=== PATIENT | female | born 1985 | race American Indian/Alaskan Native ===

== ENCOUNTER 2019-08-01 01:53 | Emergency (ER) | payer SELFPAY ==
[2019-08-01] MEDS ORDERED: predniSONE 20 MG TAB PO ONE (05:17)
[2019-08-01] MEDS ORDERED: IBUPROFEN 600 MG TAB PO ONE (05:17)
--- NOTE | 2019-08-01 06:02 | Emergency Department Report ---
Upper Extremity - HPI Chief Complaint: Extremity Injury, Upper Stated Complaint: RIGHT ARM PAIN Upper Extremity: Right Elbow (pain), Right Forearm (pain), Right Wrist (pain), Right Hand (pain), Right Index Finger, Right Middle Finger, Right Ring Finger, Right Little Finger Occurred When: Today Mechanism: Unsure (may have slept on the right forearm) Severity: moderate Symptoms: Yes Numbness (with tingling), No Pain with Movement, No Limited Range of Movement, No Weakness, No Swelling, No Bruising/Ecchymosis, No Laceration or Abrasion Other History: Patient is a 33-year-old -Welsh female with no past medical history presents to the ED with continued of acute onset persistent diffuse right elbow and forearm pain with tingling and numbness sensation distally in the right hand and fingers intermittently for the last 6 hours. Patient states that she was asleep when she woke up with a sensation that for right hand and decided come to the ED for evaluation. Patient denies dizziness, chest pain, shortness of breath, neck pain, headache, heavy lifting, traumatic injury, nausea and vomiting, diaphoresis or fall. ED Review of Systems ROS: Stated complaint: RIGHT ARM PAIN Other details as noted in HPI Constitutional: denies: chills, fever Eyes: denies: eye pain, eye discharge, vision change ENT: denies: ear pain, throat pain Respiratory: denies: cough, shortness of breath, wheezing Cardiovascular: denies: chest pain, palpitations Endocrine: no symptoms reported Gastrointestinal: denies: abdominal pain, nausea, diarrhea Genitourinary: denies: urgency, dysuria, discharge Musculoskeletal: arthralgia (right forearm and elbow; right wrist and hand with tingling sensations). denies: back pain, joint swelling Skin: denies: rash, lesions Neurological: denies: headache, weakness, paresthesias Psychiatric: denies: anxiety, depression Hematological/Lymphatic: denies: easy bleeding, easy bruising ED Past Medical Hx - Past Medical History Previous Medical History?: No Hx Hypertension: No Hx Congestive Heart Failure: No Hx Diabetes: No Hx Deep Vein Thrombosis: No Hx Renal Disease: No Hx Sickle Cell Disease: No Hx Seizures: No Hx Asthma: No Hx COPD: No Hx HIV: No Additional medical history: MORBID OBESITY - Surgical History Past Surgical History?: No - Social History Smoking Status: Current Some Day Smoker Substance Use Type: None - Medications Home Medications: Home Medications Medication Instructions Recorded Confirmed Last Taken Type Hyoscyamine Subl [Levsin Sl] 0.125 mg SL Q4HR PRN #7 tablet 06/20/14 05/05/15 Unknown Rx Promethazine [Phenergan] 25 mg PO Q6H PRN #10 tablet 06/20/14 05/05/15 Unknown Rx Ibuprofen [Motrin 800 MG tab] 800 mg PO Q8HR PRN #90 tablet 05/02/15 Unknown Rx oxyCODONE /ACETAMINOPHEN [Percocet 1 tab PO Q6HR PRN #30 tablet 05/02/15 Unknown Rx 5/325 mg] Naproxen 500 mg PO Q12H PRN #30 tablet 08/01/19 Unknown Rx predniSONE [Deltasone] 40 mg PO QDAY #12 tab 08/01/19 Unknown Rx tiZANidine [Zanaflex 4mg TAB] 4 mg PO Q8H PRN #21 tablet 08/01/19 Unknown Rx traMADoL [Ultram] 50 mg PO Q6HR PRN #10 tablet 08/01/19 Unknown Rx Upper Extremity Exam - Exam General: Vital signs noted. No distress. Alert and acting appropriately. Head and Torso: No HEENT Abnormality, No Neck Tenderness, No Chest/Lungs Abnormality, No Abdominal Tenderness, No Back Tenderness Shoulder Exam: Yes Normal Range of Motion in Shoulder, No Shoulder Tenderness, No Clavicle Tenderness, No Shoulder Deformity, No AC Joint Tenderness Arm Exam: No Arm/Humerus Tenderness, No Arm Deformity Elbow: Yes Elbow Tenderness, Yes Normal Range of Motion in Elbow, No Elbow Deformity Forearm: Yes Forearm Tenderness, No Forearm Deformity, No Pain with Pronation, No Pain with Supination Wrist: Yes Wrist Tenderness, Yes Normal ROM in Wrist, No Wrist Deformity, No Snuffbox Tenderness, No Pain with Axial Thumb Compression Hand: Yes Hand Tenderness, Yes Digit Tenderness, Yes Normal ROM in Digit(s), No Hand Deformity, No Digit(s) Deformity, No Tendon Dysfunction CMS Exam: Yes Normal Distal Pulses, Yes Normal Capillary Refill, Yes Normal Distal Sensation, No Broken Skin ED Course Vital Signs 08/01/19 01:59 Temperature 98.6 F Pulse Rate 74 Respiratory 18 Rate Blood Pressure 152/69 O2 Sat by Pulse 100 Oximetry ED Medical Decision Making - Medical Decision Making This is a 33-year-old female who presented to the ED with complaint of acute onset of nontraumatic right elbow and right forearm, right hand and wrist pain with tingling and numbness sensation for 6 hours. In the ED, patient is alert and oriented 3 and is not in distress with normal vital signs. Patient was treated for pain in the ED for suspicion of cervical radiculopathy and muscle strain. On reevaluation, patient's pain is well controlled with medications. Patient was discharged home on pain medications and was advised to follow-up with her primary care physician in 5-7 days for reevaluation or return to the ED immediately if symptoms get worse. - Differential Diagnosis cervical radiculopathy; muscle strain; muscle spasm; tendonitis Critical care attestation.: If time is entered above; I have spent that time in minutes in the direct care of this critically ill patient, excluding procedure time. ED Disposition Clinical Impression: Right cervical radiculopathy, Tendinitis of right forearm Muscle strain of right forearm Qualifiers: Encounter type: initial encounter Qualified Code(s): S56.911A - Strain of unspecified muscles, fascia and tendons at forearm level, right arm, initial encounter Disposition: - TO HOME OR SELFCARE Is pt being admited?: No Does the pt Need Aspirin: No Condition: Stable Instructions: Muscle Strain (ED), Cervical Radiculopathy (ED), Tendinitis (ED) Additional Instructions: Take medication with food, drink plenty of fluids and follow up with your primary care physician in 5-7 days for reevaluation. Return to ED immediately if symptoms get worse. Prescriptions: predniSONE [Deltasone] 40 mg PO QDAY #12 tab Naproxen 500 mg PO Q12H PRN #30 tablet PRN Reason: Pain , Severe (7-10) traMADoL [Ultram] 50 mg PO Q6HR PRN #10 tablet PRN Reason: Pain tiZANidine [Zanaflex 4mg TAB] 4 mg PO Q8H PRN #21 tablet PRN Reason: Muscle Spasm Referrals: [facility] [Outside] - 3-5 Days Forms: Work/School Release Form(ED) Time of Disposition: 06:04 Print Language: JAPANESE
[2019-08-01 06:23] VITALS: BP 148/74
== END 2019-08-01 06:22 | disposition home or self-care (01) ==
LOC: ED 01:53
DX: S56.911A Strain of unspecified muscles, fascia and tendons at forearm level, right arm, initial encounter (principal); M54.12 Radiculopathy, cervical region; M77.9 Enthesopathy, unspecified; F17.200 Nicotine dependence, unspecified, uncomplicated; Z79.899 Other long term (current) drug therapy; X58.XXXA Exposure to other specified factors, initial encounter; Y93.89 Activity, other specified; Y92.89 Other specified places as the place of occurrence of the external cause; Y99.8 Other external cause status
CPT/HCPCS: 99282; J7512

== ENCOUNTER 2020-04-12 15:41 | Emergency (ER) | payer SELFPAY ==
[2020-04-12] MEDS ORDERED: ASPIRIN 325 MG TAB PO ONE (16:37)
--- NOTE | 2020-04-12 17:05 | XRay Report ---
CHEST 2 VIEWS INDICATION / CLINICAL INFORMATION: MAIN. COMPARISON: None available. FINDINGS: SUPPORT DEVICES: None. HEART / MEDIASTINUM: No significant abnormality. LUNGS / PLEURA: No significant pulmonary or pleural abnormality. No pneumothorax. ADDITIONAL FINDINGS: No significant additional findings. IMPRESSION: No significant abnormality Signer Name: Tony Neff MD FACR Signed: 04/12/2020 5:00 PM Workstation Name: [id number]
[2020-04-12 17:28] LABS: Hematocrit 38.4 % (30.3-42.9); Hemoglobin 12.6 gm/dl (10.1-14.3); Mean Corpuscular HGB Conc 33 % (30-34); Mean Corpuscular Volume 93 fl (79-97); Platelet Count 332 K/mm3 (140-440); Red Blood Count 4.12 M/mm3 (3.65-5.03); Red Cell Distribution Width 14.9 % (13.2-15.2)
[2020-04-12 17:37] LABS: Blood Urea Nitrogen 9 mg/dL (7-17); Calcium 9.2 mg/dL (8.4-10.2); Hemolysis Index 33
[2020-04-12 17:39] LABS: BUN/Creatinine Ratio 15
[2020-04-12 18:44] LABS: Basophils % (Manual) 0 % (0.0-1.8); Eosinophils % (Manual) 0 % (0.0-4.3); Total Cells Counted 100
[2020-04-12 18:47] LABS: Platelet Estimate Consistent w Auto; RBC Morphology Normal
--- NOTE | 2020-04-13 00:43 | Emergency Department Report ---
ED Chest Pain HPI - General Chief Complaint: Chest Pain Stated Complaint: LFT ARM PAIN PUI?: No Time Seen by Provider: 04/13/20 00:28 Source: patient Mode of arrival: Ambulatory Limitations: No Limitations - History of Present Illness Initial Comments: Patient is a 34-year-old female that presents emergency room with complaints of left upper arm pain radiating to her left chest. Patient states that the pain started yesterday morning at 7:30 AM. Patient states the pain is worsening. Patient states that the pain is worse with movement and palpation. Patient states the pain is better with rest. Patient states that she only has chest pain when she moves her left arm. Patient denies shortness of breath. Patient denies fever and chills. Patient denies diaphoresis. Patient denies anxiety. Patient states he has an Nexplanon in her left upper arm. Patient states he was placed in 2015. Patient states it is been aching for a few weeks but recently the pain increased. Patient states she is having pain directly at the site and it radiates up to her left shoulder and left chest. Patient states that she also used her left arm 2 days ago a lot more than usual. Patient denies recent travel. Patient denies recent international travel. Patient denies exposure to the novel coronavirus. Patient denies sick contacts. Patient denies fever and chills. Patient denies cough. Patient denies diarrhea. Patient denies coming in contact with anybody with symptoms of the novel coronavirus. Negative who -: Sudden Onset: during rest Severity: moderate Severity scale (0 -10): 6 Quality: sharp Consistency: constant Improves With: rest Worsens With: palpation, movement re: denies: nausea, vomting, diaphoresis, dyspnea, sense of impending doom Other Symptoms: denies: cough, fever, syncope, rash, acid taste in mouth, leg swelling, palpitations, burping Treatments Prior to Arrival: none Aspirin use within the Past 7 Days: (0) No - Related Data On Oral Contraceptives: No Previous Rx's Medication Instructions Recorded Last Taken Type Hyoscyamine Subl [Levsin Sl] 0.125 mg SL Q4HR PRN #7 tablet 06/20/14 Unknown Rx Promethazine [Phenergan] 25 mg PO Q6H PRN #10 tablet 06/20/14 Unknown Rx Ibuprofen [Motrin 800 MG tab] 800 mg PO Q8HR PRN #90 tablet 05/02/15 Unknown Rx oxyCODONE /ACETAMINOPHEN [Percocet 1 tab PO Q6HR PRN #30 tablet 05/02/15 Unknown Rx 5/325 mg] Naproxen 500 mg PO Q12H PRN #30 tablet 08/01/19 Unknown Rx predniSONE [Deltasone] 40 mg PO QDAY #12 tab 08/01/19 Unknown Rx tiZANidine [Zanaflex 4mg TAB] 4 mg PO Q8H PRN #21 tablet 08/01/19 Unknown Rx traMADoL [Ultram] 50 mg PO Q6HR PRN #10 tablet 08/01/19 Unknown Rx Allergies Allergy/AdvReac Type Severity Reaction Status Date / Time No Known Allergies Allergy Verified 03/22/15 05:04 Heart Score - HEART Score History: Slightly suspicious EKG: Normal Age: < 45 Risk factors: 1-2 risk factors Troponin: < normal limit HEART Score: 1 ED Review of Systems ROS: Stated complaint: LFT ARM PAIN Other details as noted in HPI Constitutional: denies: chills, fever Eyes: denies: eye pain, eye discharge, vision change ENT: denies: ear pain, throat pain Respiratory: denies: cough, shortness of breath, wheezing Cardiovascular: chest pain. denies: palpitations Endocrine: no symptoms reported Gastrointestinal: denies: abdominal pain, nausea, diarrhea Genitourinary: denies: urgency, dysuria, discharge Musculoskeletal: denies: back pain, joint swelling, arthralgia Skin: denies: rash, lesions Neurological: denies: headache, weakness, paresthesias Psychiatric: denies: anxiety, depression Hematological/Lymphatic: denies: easy bleeding, easy bruising ED Past Medical Hx - Past Medical History Previous Medical History?: Yes Hx Hypertension: No Hx Congestive Heart Failure: No Hx Diabetes: No Hx Deep Vein Thrombosis: No Hx Renal Disease: No Hx Sickle Cell Disease: No Hx Seizures: No Hx Asthma: No Hx COPD: No Hx HIV: No Additional medical history: MORBID OBESITY - Surgical History Past Surgical History?: No - Family History Family history: no significant - Social History Smoking Status: Current Some Day Smoker Substance Use Type: None - Medications Home Medications: Home Medications Medication Instructions Recorded Confirmed Last Taken Type Hyoscyamine Subl [Levsin Sl] 0.125 mg SL Q4HR PRN #7 tablet 06/20/14 05/05/15 Unknown Rx Promethazine [Phenergan] 25 mg PO Q6H PRN #10 tablet 06/20/14 05/05/15 Unknown Rx Ibuprofen [Motrin 800 MG tab] 800 mg PO Q8HR PRN #90 tablet 05/02/15 Unknown Rx oxyCODONE /ACETAMINOPHEN [Percocet 1 tab PO Q6HR PRN #30 tablet 05/02/15 Unknown Rx 5/325 mg] Naproxen 500 mg PO Q12H PRN #30 tablet 08/01/19 Unknown Rx predniSONE [Deltasone] 40 mg PO QDAY #12 tab 08/01/19 Unknown Rx tiZANidine [Zanaflex 4mg TAB] 4 mg PO Q8H PRN #21 tablet 08/01/19 Unknown Rx traMADoL [Ultram] 50 mg PO Q6HR PRN #10 tablet 08/01/19 Unknown Rx ED Physical Exam - General Limitations: No Limitations General appearance: alert, in no apparent distress, obese - Head Head exam: Present: atraumatic, normocephalic - Eye Eye exam: Present: normal appearance - ENT ENT exam: Present: mucous membranes moist - Neck Neck exam: Present: normal inspection - Respiratory Respiratory exam: Present: normal lung sounds bilaterally, chest wall tenderness. Absent: respiratory distress - Cardiovascular Cardiovascular Exam: Present: regular rate, normal rhythm. Absent: systolic murmur, diastolic murmur, rubs, gallop - GI/Abdominal GI/Abdominal exam: Present: soft, normal bowel sounds - Extremities Exam Extremities exam: Present: normal inspection, tenderness (Left upper arm tenderness) - Back Exam Back exam: Present: normal inspection - Neurological Exam Neurological exam: Present: alert, oriented X3 - Psychiatric Psychiatric exam: Present: normal affect, normal mood - Skin Skin exam: Present: warm, dry, intact, normal color. Absent: rash ED Course Vital Signs 04/12/20 04/13/20 16:14 00:30 Temperature 98.7 F 97.6 F Pulse Rate 76 72 Respiratory 18 Rate Blood Pressure 128/93 126/72 [Left] O2 Sat by Pulse 100 Oximetry - Reevaluation(s) Reevaluation #1: I discussed all results and clinical findings with patient. I discussed plan of care with patient. Patient agrees with plan of care. Patient is stable for d ischarge. Patient will be discharged home. Patient given discharge instructions. Patient voiced understanding of discharge instructions. 04/13/20 00:42 OLIVER score - Oliver Score Age > 65: (0) No Aspirin use within the Past 7 Days: (0) No 3 or more CAD Risk Factors: (0) No 2 or more Angina events in past 24 hrs: (0) No Known CAD with more than 50% Stenosis: (0) No Elevated Cardiac Markers: (0) No ST Deviation Greater than 0.5mm: (0) No OLIVER Score: 0 ED Medical Decision Making - Lab Data Result diagrams: 04/12/20 16:52 04/12/20 16:52 - EKG Data -: EKG Interpreted by Me EKG shows normal: sinus rhythm, axis, intervals, QRS complexes, ST-T waves Rate: normal - Radiology Data Radiology results: report reviewed, image reviewed interpreted by me: Chest x-ray: No pneumonia, no pneumothorax, no foreign body, no osseous findings, no acute findings CHEST 2 VIEWS INDICATION / CLINICAL INFORMATION: MAIN. COMPARISON: None available. FINDINGS: SUPPORT DEVICES: None. HEART / MEDIASTINUM: No significant abnormality. LUNGS / PLEURA: No significant pulmonary or pleural abnormality. No pneumothorax. ADDITIONAL FINDINGS: No significant additional findings. IMPRESSION: No significant abnormality - Medical Decision Making Patient is a 34-year-old female that presents emergency room with complaints of left arm pain radiating to her left chest. Patient had a cardiac work-up. Patient's troponin was negative x3. Patient was EKG is negative. Patient's chest x-ray is negative for acute findings. Patient's chest pain and arm pain is clearly noncardiac. Patient is stable for discharge. Patient's chest pain and arm pain can be worked up as an outpatient. Patient information will be faxed over to her local industrial/organizational psychologist for restratification and further evaluation of her chest pain. Patient instructed to follow-up with her primary care. Patient given discharge instructions and is stable for discharge. Patient's information faxed over to her local industrial/organizational psychologist for further evaluation and treatment of her chest pain and risk stratification. - Differential Diagnosis Chest pain, chest wall pain, arm pain, sprain, strain Critical care attestation.: If time is entered above; I have spent that time in minutes in the direct care of this critically ill patient, excluding procedure time. ED Disposition Clinical Impression: Chest wall pain, Left upper arm pain Chest wall muscle strain Qualifiers: Encounter type: initial encounter Qualified Code(s): S29.011A - Strain of muscle and tendon of front wall of thorax, initial encounter Strain of left upper arm Qualifiers: Encounter type: initial encounter Qualified Code(s): S46.912A - Strain of unspecified muscle, fascia and tendon at shoulder and upper arm level, left arm, initial encounter Disposition: TO HOME OR SELFCARE Is pt being admited?: No Does the pt Need Aspirin: No Condition: Stable Instructions: Chest Pain (ED), Muscle Strain (ED) Additional Instructions: Patient to follow-up with primary care in 2 to 3 days. Patient to follow-up with OR[facility]OD[facility] in 2 to 3 days. Patient to follow-up with cardiology in 2 to 3 days. Patient to rest. Patient to increase water. Patient to avoid strenuous exercise or heavy lifting until cleared by [facility] and cardiology.. Patient to take Tylenol or ibuprofen as needed for pain. Patient to return to the ER if condition worsens, changes or new symptoms arise. Referrals: PRIMARY CARE, [Primary Care Provider] - 2-3 Days GIANCARLO SCHAEFER MD [Staff Physician] - 2-3 Days Time of Disposition: 00:46
[2020-04-13 01:23] VITALS: BP 126/72
== END 2020-04-13 01:23 | disposition home or self-care (01) ==
LOC: ED 15:41
DX: S46.912A Strain of unspecified muscle, fascia and tendon at shoulder and upper arm level, left arm, initial encounter (principal); S29.011A Strain of muscle and tendon of front wall of thorax, initial encounter; F17.200 Nicotine dependence, unspecified, uncomplicated; Z79.899 Other long term (current) drug therapy; X58.XXXA Exposure to other specified factors, initial encounter; Y93.89 Activity, other specified; Y92.89 Other specified places as the place of occurrence of the external cause; Y99.8 Other external cause status
CPT/HCPCS: 36415; 71046; 80048; 84484; 85007; 85025; 93005

== ENCOUNTER 2020-04-14 02:19 | Emergency (ER) | payer SELFPAY ==
--- NOTE | 2020-04-14 11:20 | XRay Report ---
LEFT HUMERUS 3 VIEW(S) INDICATION / CLINICAL INFORMATION: pain to upper arm. COMPARISON: None available. FINDINGS: BONES / JOINT(S): No acute fracture or subluxation. No significant arthritis. SOFT TISSUES: No significant abnormality. ADDITIONAL FINDINGS: None. Signer Name: Meño Manriquez MD Signed: 04/14/2020 11:15 AM Workstation Name: [id number]
--- NOTE | 2020-04-14 11:52 | Emergency Department Report ---
Upper Extremity - HPI Chief Complaint: Extremity Injury, Upper Stated Complaint: LEFT ARM PAIN Time Seen by Provider: 04/14/20 10:40 Upper Extremity: Left Arm Occurred When: >5 Days Mechanism: Unsure (Atraumatic left upper arm pain thought was secondary to her control implant which is been in place for 4 years pain is worse with palpation and various movements reports no fever chills or sweats, no numbness or tingling. No direct trauma no change to skin) Severity: mild, moderate Symptoms: Yes Pain with Movement, No Limited Range of Movement, No Numbness, No Weakness, No Swelling, No Bruising/Ecchymosis, No Laceration or Abrasion Other History: Ms. Bowen has been seen in emergency department previously for the same issue. For the same condition states that the [id number] treatments were not helpful so she came back for reevaluation. She reports no new symptoms the symptoms has just been not improved ED Review of Systems ROS: Stated complaint: LEFT ARM PAIN Other details as noted in HPI Comment: All other systems reviewed and negative ED Past Medical Hx - Past Medical History Previous Medical History?: Yes Hx Hypertension: No Hx Congestive Heart Failure: No Hx Diabetes: No Hx Deep Vein Thrombosis: No Hx Renal Disease: No Hx Sickle Cell Disease: No Hx Seizures: No Hx Asthma: No Hx COPD: No Hx HIV: No Additional medical history: MORBID OBESITY - Surgical History Past Surgical History?: No - Social History Smoking Status: Never Smoker Substance Use Type: None - Medications Home Medications: Home Medications Medication Instructions Recorded Confirmed Last Taken Type Hyoscyamine Subl [Levsin Sl] 0.125 mg SL Q4HR PRN #7 tablet 06/20/14 05/05/15 Unknown Rx Promethazine [Phenergan] 25 mg PO Q6H PRN #10 tablet 06/20/14 05/05/15 Unknown Rx Ibuprofen [Motrin 800 MG tab] 800 mg PO Q8HR PRN #90 tablet 05/02/15 Unknown Rx oxyCODONE /ACETAMINOPHEN [Percocet 1 tab PO Q6HR PRN #30 tablet 05/02/15 Unknown Rx 5/325 mg] Naproxen 500 mg PO Q12H PRN #30 tablet 08/01/19 Unknown Rx predniSONE [Deltasone] 40 mg PO QDAY #12 tab 08/01/19 Unknown Rx tiZANidine [Zanaflex 4mg TAB] 4 mg PO Q8H PRN #21 tablet 08/01/19 Unknown Rx traMADoL [Ultram] 50 mg PO Q6HR PRN #10 tablet 08/01/19 Unknown Rx Ketorolac [Toradol] 10 mg PO Q8H PRN #10 tablet 04/14/20 Unknown Rx Upper Extremity Exam - Exam General: Vital signs noted. No distress. Alert and acting appropriately. Head and Torso: No HEENT Abnormality, No Neck Tenderness, No Chest/Lungs Abnormality, No Abdominal Tenderness, No Back Tenderness Shoulder Exam: Yes Normal Range of Motion in Shoulder, No Shoulder Tenderness, No Clavicle Tenderness, No Shoulder Deformity, No AC Joint Tenderness Arm Exam: Yes Arm/Humerus Tenderness, No Arm Deformity Elbow: No Elbow Tenderness, No Normal Range of Motion in Elbow, No Elbow Deformity Forearm: No Forearm Tenderness, No Forearm Deformity, No Pain with Pronation, No Pain with Supination Wrist: Yes Normal ROM in Wrist, No Wrist Tenderness, No Wrist Deformity, No Snuffbox Tenderness, No Pain with Axial Thumb Compression Hand: Yes Normal ROM in Digit(s), No Hand Tenderness, No Hand Deformity, No Digit Tenderness, No Digit(s) Deformity, No Tendon Dysfunction CMS Exam: Yes Normal Distal Pulses, Yes Normal Capillary Refill, Yes Normal Distal Sensation, No Broken Skin ED Course Vital Signs 04/14/20 04/14/20 03:58 07:59 Temperature 98.0 F Pulse Rate 70 63 Respiratory 12 16 Rate Blood Pressure 171/83 Blood Pressure 148/81 [Right] O2 Sat by Pulse 99 98 Oximetry ED Medical Decision Making - Radiology Data Radiology results: report reviewed [facility] [address] [place] [address] XRay Report Signed Patient: ELVIA RAMIREZ MR#: [id number] : 1985 Acct:[id number] Age/Sex: 34 / F ADM Date: 04/14/20 Loc: ED Attending Dr: Ordering Physician: ZAHRAA BUTTS Date of Service: 04/14/20 Procedure(s): XR humerus 2+V LT Accession Number(s): [id number] cc: ZAHRAA BUTTS Fluoro Time In Minutes: LEFT HUMERUS 3 VIEW(S) INDICATION / CLINICAL INFORMATION: pain to upper arm. COMPARISON: None available. FINDINGS: BONES / JOINT(S): No acute fracture or subluxation. No significant arthritis. SOFT TISSUES: No significant abnormality. ADDITIONAL FINDINGS: None. Signer Name: Meño Manriquez MD Signed: 04/14/2020 11:15 AM Workstation Name: [id number] Transcribed By: TL Dictated By: Meño Manriquez MD Electronically Authenticated By: Meño Manriquez MD Signed Date/Time: 04/14/201114 DD/ 14 TD/TT: - Medical Decision Making 34-year-old [place] female with continuing chronic pain to the left humerus area and area of the triceps with normal function of the muscle no evidence of any cellulitis or other infectious process no foreign body seen on the x-ray and no issues with the humerus bone itself. Advised patient to follow-up with her primary care provider or her [employer]ING [employer] for further evaluation of her control implant and pain to that region. There is no obvious life-threatening urgent or emergent conditions present is present time advised her on position of icing and and analgesic assistance to the site. Critical care attestation.: If time is entered above; I have spent that time in minutes in the direct care of this critically ill patient, excluding procedure time. ED Disposition Clinical Impression: Left upper arm pain Disposition: -01 TO HOME OR SELFCARE Is pt being admited?: No Does the pt Need Aspirin: No Condition: Stable Instructions: Musculoskeletal Pain (ED) Prescriptions: Ketorolac [Toradol] 10 mg PO Q8H PRN #10 tablet PRN Reason: Pain Referrals: PRIMARY CAREMD [Primary Care Provider] - 3-[address] [facility] [Provider Group] - 3-5 Days
[2020-04-14 11:53] VITALS: BP 134/80
== END 2020-04-14 12:06 | disposition home or self-care (01) ==
LOC: ED 02:19
DX: M79.602 Pain in left arm (principal); Z79.1 Long term (current) use of non-steroidal anti-inflammatories (NSAID); Z79.899 Other long term (current) drug therapy
CPT/HCPCS: 99283

== ENCOUNTER 2020-07-23 02:13 | Emergency (ER) | payer SELFPAY ==
--- NOTE | 2020-07-23 04:43 | Event Note ---
ED Screening Note Date of service: 07/23/20 Time: 04:40 ED Screening Note: This initial assessment/diagnostic orders/clinical plan/treatment(s) is/are subject to change based on patients health status, clinical progression and re- assessment by fellow clinical providers in the ED. Further treatment and workup at subsequent clinical providers discretion. Patient/guardian urged not to elope from the ED as their condition may be serious if not clinically assessed and managed. Initial orders include: 34-year-old morbidly obese female presents to the emergency room complaining of chest pain and abdominal pain off-and-on x1 day. She denies any nausea vomiting no fever no cough. Chest pain is located in the center of her chest no radiation no diaphoresis. Her abdominal pain is in mid upper abdomen. She denies any diarrhea or constipation. Patient is well-appearing in no acute dis tress
[2020-07-23 05:15] LABS: Hematocrit 37.4 % (30.3-42.9); Hemoglobin 12.2 gm/dl (10.1-14.3); Mean Corpuscular HGB Conc 33 % (30-34); Mean Corpuscular Volume 91 fl (79-97); Platelet Count 288 K/mm3 (140-440); Red Blood Count 4.09 M/mm3 (3.65-5.03); Red Cell Distribution Width 14.7 % (13.2-15.2)
[2020-07-23 05:31] LABS: Bacteria,Urine 3+ /HPF (Negative); Bilirubin,Urine NEG (Negative); Blood,Urine NEG (Negative); Color,Urine Yellow (Yellow); Mucus,Urine 2+ /HPF; Protein,Urine <15 mg/dL mg/dL (Negative)
[2020-07-23 05:32] LABS: HCG Qualitative,Urine Negative (Negative)
--- NOTE | 2020-07-23 05:59 | XRay Report ---
CHEST 2 VIEWS INDICATION / CLINICAL INFORMATION: chest pain. COMPARISON: 04/12/2020 FINDINGS: SUPPORT DEVICES: None. HEART / MEDIASTINUM: No significant abnormality. LUNGS / PLEURA: No significant pulmonary or pleural abnormality. No pneumothorax. ADDITIONAL FINDINGS: No significant additional findings. IMPRESSION: 1. No acute findings. Signer Name: Leonard Conley MD Signed: 07/23/2020 5:54 AM Workstation Name: [id number]
[2020-07-23] MEDS ORDERED: ACETAMINOPHEN 325 MG TAB PO ONE (07:56)
[2020-07-23] MEDS ORDERED: NITROFURANTOIN MONOHYD/M-CRYST 100 MG CAP PO ONE (07:56)
[2020-07-23 08:04] LABS: Alanine Aminotransferase 8 units/L (7-56); Albumin 4.1 g/dL (3.9-5); Blood Urea Nitrogen 13 mg/dL (7-17); Hemolysis Index 4
--- NOTE | 2020-07-23 08:05 | Emergency Department Report ---
ED Abdominal Pain HPI - General Chief Complaint: Abdominal Pain Stated Complaint: CHEST /ABD PAIN Time Seen by Provider: 07/23/20 07:40 Source: patient Mode of arrival: Ambulatory Limitations: No Limitations - History of Present Illness Initial Comments: 34-year-old obese female presents to the hospital with complaints of intermittent chest pain and abdominal pain x1 day. Patient describes epigastric aching 7/10 abdominal pain worse with palpation. No alleviating factors reported. She denies aggravating or alleviating factors, nausea, vomiting, f ever, dysuria, or urinary frequency. Patient also having intermittent sharp mid sternal chest pain since yesterday. Pain worse when lying supine and with palpation. She denies increased pain with inspiration, fever, cough, diaphoresis shortness of breath, calf tenderness, leg edema, recent travel, history of PE/DVT, or current control use. - Related Data Previous Rx's Medication Instructions Recorded Last Taken Type Hyoscyamine Subl [Levsin Sl] 0.125 mg SL Q4HR PRN #7 tablet 06/20/14 Unknown Rx Promethazine [Phenergan] 25 mg PO Q6H PRN #10 tablet 06/20/14 Unknown Rx Ibuprofen [Motrin 800 MG tab] 800 mg PO Q8HR PRN #90 tablet 05/02/15 Unknown Rx oxyCODONE /ACETAMINOPHEN [Percocet 1 tab PO Q6HR PRN #30 tablet 05/02/15 Unknown Rx 5/325 mg] Naproxen 500 mg PO Q12H PRN #30 tablet 08/01/19 Unknown Rx predniSONE [Deltasone] 40 mg PO QDAY #12 tab 08/01/19 Unknown Rx tiZANidine [Zanaflex 4mg TAB] 4 mg PO Q8H PRN #21 tablet 08/01/19 Unknown Rx traMADoL [Ultram] 50 mg PO Q6HR PRN #10 tablet 08/01/19 Unknown Rx Ketorolac [Toradol] 10 mg PO Q8H PRN #10 tablet 04/14/20 Unknown Rx Famotidine [Pepcid] 20 mg PO BID #20 tablet 07/23/20 Unknown Rx Nitrofurantoin [place]/M-Cryst 100 mg PO Q12HR #10 capsule 07/23/20 Unknown Rx [Macrobid CAP] Ondansetron [Zofran Odt] 4 mg PO Q8HR PRN #14 tab.rapdis 07/23/20 Unknown Rx traMADoL [Ultram 50 MG tab] 50 mg PO Q6HR PRN #12 tablet 07/23/20 Unknown Rx Allergies Allergy/AdvReac Type Severity Reaction Status Date / Time No Known Allergies Allergy Verified 03/22/15 05:04 ED Review of Systems ROS: Stated complaint: CHEST /ABD PAIN Other details as noted in HPI Comment: All other systems reviewed and negative ED Past Medical Hx - Past Medical History Previous Medical History?: No Hx Hypertension: No Hx Congestive Heart Failure: No Hx Diabetes: No Hx Deep Vein Thrombosis: No Hx Renal Disease: No Hx Sickle Cell Disease: No Hx Seizures: No Hx Asthma: No Hx COPD: No Hx HIV: No Additional medical history: MORBID OBESITY - Surgical History Past Surgical History?: No - Social History Smoking Status: Never Smoker Substance Use Type: None - Medications Home Medications: Home Medications Medication Instructions Recorded Confirmed Last Taken Type Hyoscyamine Subl [Levsin Sl] 0.125 mg SL Q4HR PRN #7 tablet 06/20/14 05/05/15 Unknown Rx Promethazine [Phenergan] 25 mg PO Q6H PRN #10 tablet 06/20/14 05/05/15 Unknown Rx Ibuprofen [Motrin 800 MG tab] 800 mg PO Q8HR PRN #90 tablet 05/02/15 Unknown Rx oxyCODONE /ACETAMINOPHEN [Percocet 1 tab PO Q6HR PRN #30 tablet 05/02/15 Unknown Rx 5/325 mg] Naproxen 500 mg PO Q12H PRN #30 tablet 08/01/19 Unknown Rx predniSONE [Deltasone] 40 mg PO QDAY #12 tab 08/01/19 Unknown Rx tiZANidine [Zanaflex 4mg TAB] 4 mg PO Q8H PRN #21 tablet 08/01/19 Unknown Rx traMADoL [Ultram] 50 mg PO Q6HR PRN #10 tablet 08/01/19 Unknown Rx Ketorolac [Toradol] 10 mg PO Q8H PRN #10 tablet 04/14/20 Unknown Rx Famotidine [Pepcid] 20 mg PO BID #20 tablet 07/23/20 Unknown Rx Nitrofurantoin [place]/M-Cryst 100 mg PO Q12HR #10 capsule 07/23/20 Unknown Rx [Macrobid CAP] Ondansetron [Zofran Odt] 4 mg PO Q8HR PRN #14 tab.rapdis 07/23/20 Unknown Rx traMADoL [Ultram 50 MG tab] 50 mg PO Q6HR PRN #12 tablet 07/23/20 Unknown Rx ED Physical Exam - General Limitations: No Limitations - Other Other exam information: General: No acute distress Head: Atraumatic Eyes: normal appearance ENT: Moist mucous membranes Neck: Normal appearance, no midline tenderness Chest: Clear to auscultation bilaterally, midsternal chest wall tenderness CV: Regular rate and rhythm Abdomen: Soft, normal bowel sounds, mild epigastric tenderness, nondistended, no rebound or guarding Back: Normal inspection Extremity: Normal inspection, full range of motion Neuro: Alert O x 3, no facial asymmetry, speech clear, no gross motor sensory deficit Psych: Appropriate behavior Skin: No rash ED Course Vital Signs 07/23/20 04:29 Temperature 98.0 F Pulse Rate 70 Respiratory 18 Rate Blood Pressure 151/92 O2 Sat by Pulse 100 Oximetry ED Medical Decision Making - Lab Data Result diagrams: 07/23/20 04:50 07/23/20 07:41 Lab Results 07/23/20 07/23/20 07/23/20 Range/Units 04:45 04:50 04:50 WBC 11.7 H (4.5-11.0) K/mm3 RBC 4.09 (3.65-5.03) M/mm3 Hgb 12.2 (10.1-14.3) gm/dl Hct 37.4 (30.3-42.9) % MCV 91 (79-97) fl MCH 30 (28-32) pg MCHC 33 (30-34) % RDW 14.7 (13.2-15.2) % Plt Count 288 (140-440) K/mm3 Sodium (137-145) mmol/L Potassium (3.6-5.0) mmol/L Chloride (98-107) mmol/L Carbon Dioxide (22-30) mmol/L Anion Gap mmol/L BUN (7-17) mg/dL Creatinine (0.6-1.2) mg/dL Estimated GFR ml/min BUN/Creatinine Ratio % Glucose (65-100) mg/dL Calcium (8.4-10.2) mg/dL Total Bilirubin (0.1-1.2) mg/dL AST (5-40) units/L ALT (7-56) units/L Alkaline Phosphatase (35-129) units/L Troponin T (0.00-0.029) ng/mL Total Protein (6.3-8.2) g/dL Albumin (3.9-5) g/dL Albumin/Globulin Ratio % Lipase 22 (13-60) units/L Urine Color Yellow (Yellow) Urine Turbidity Clear (Clear) Urine pH 5.0 (5.0-7.0) Ur Specific Alexander 1.027 (1.003-1.030) Urine Protein <15 mg/dl (Negative) mg/dL Urine Glucose (UA) Neg (Negative) mg/dL Urine Ketones 20 (Negative) mg/dL Urine Blood Neg (Negative) Urine Nitrite Pos (Negative) Urine Bilirubin Neg (Negative) Urine Urobilinogen 2.0 (<2.0) mg/dL Ur Leukocyte Esterase Sm (Negative) Urine WBC (Auto) 28.0 H (0.0-6.0) /HPF Urine RBC (Auto) 4.0 (0.0-6.0) /HPF U Epithel Cells (Auto) 2.0 (0-13.0) /HPF Urine Bacteria (Auto) 3+ (Negative) /HPF Urine Mucus 2+ /HPF Urine HCG, Qual Negative (Negative) 07/23/20 07/23/20 07/23/20 Range/Units 04:50 07:41 Unknown WBC (4.5-11.0) K/mm3 RBC (3.65-5.03) M/mm3 Hgb (10.1-14.3) gm/dl Hct (30.3-42.9) % MCV (79-97) fl MCH (28-32) pg MCHC (30-34) % RDW (13.2-15.2) % Plt Count (140-440) K/mm3 Sodium 140 (137-145) mmol/L Potassium 4.0 (3.6-5.0) mmol/L Chloride 106.3 (98-107) mmol/L Carbon Dioxide 24 (22-30) mmol/L Anion Gap 14 mmol/L BUN 13 (7-17) mg/dL Creatinine 0.7 (0.6-1.2) mg/dL Estimated GFR > 60 ml/min BUN/Creatinine Ratio 19 % Glucose 102 H (65-100) mg/dL Calcium 9.0 (8.4-10.2) mg/dL Total Bilirubin < 0.20 (0.1-1.2) mg/dL AST 11 (5-40) units/L ALT 8 (7-56) units/L Alkaline Phosphatase 53 (35-129) units/L Troponin T < 0.010 (0.00-0.029) ng/mL Total Protein 7.1 (6.3-8.2) g/dL Albumin 4.1 (3.9-5) g/dL Albumin/Globulin Ratio 1.4 % Lipase 25 (13-60) units/L Urine Color (Yellow) Urine Turbidity (Clear) Urine pH (5.0-7.0) Ur Specific Alexander (1.003-1.030) Urine Protein (Negative) mg/dL Urine Glucose (UA) (Negative) mg/dL Urine Ketones (Negative) mg/dL Urine Blood (Negative) Urine Nitrite (Negative) Urine Bilirubin (Negative) Urine Urobilinogen (<2.0) mg/dL Ur Leukocyte Esterase (Negative) Urine WBC (Auto) (0.0-6.0) /HPF Urine RBC (Auto) (0.0-6.0) /HPF U Epithel Cells (Auto) (0-13.0) /HPF Urine Bacteria (Auto) (Negative) /HPF Urine Mucus /HPF Urine HCG, Qual (Negative) - EKG Data -: EKG Interpreted by Wi EKG shows normal: sinus rhythm, ST-T waves (no stemi) Rate: normal - EKG Data When compared to previous EKG there are: no significant change - Radiology Data Radiology results: report reviewed (cxr: naf) - Medical Decision Making 34-year-old female presents to the hospital with epigastric pain and sternal chest wall tenderness. Chest pain is reproducible to palpation without associated symptoms and patient has a PERC PE score 0 for pulmonary embolism. Patient also has a normal/unchanged EKG and negative troponin. Heart score equals 1 UA reveals UTI. Patient is at risk for cholelithiasis given body habi tus however, patient does not have right upper quadrant tenderness/Ramos exam or, elevated LFTs, or elevated lipase on examination. Patient received Macrobid and Tylenol in the ED. Patient will be treated for UTI and symptomatic relief with outpatient follow-up encouraged. Critical Care Time: No Critical care attestation.: If time is entered above; I have spent that time in minutes in the direct care of this critically ill patient, excluding procedure time. ED Disposition Clinical Impression: Chest wall pain, UTI (urinary tract infection), Epigastric pain Disposition: TO HOME OR SELFCARE Is pt being admited?: No Does the pt Need Aspirin: No Condition: Stable Instructions: Abdominal Pain (ED), Chest Pain (ED), Nonspecific Chest Pain, Adult, Nota-[id number], Urinary Tract Infection, Adult, [id number], Abdominal Pain, Adult, [id number] Additional Instructions: Take the medication as prescribed. Follow-up with your doctor or doctor/clinic provided. Return if symptoms worsen as indicated by your discharge instructions. Prescriptions: Nitrofurantoin [place]/M-Cryst [Macrobid CAP] 100 mg PO Q12HR #10 capsule Famotidine [Pepcid] 20 mg PO BID #20 tablet traMADoL [Ultram 50 MG tab] 50 mg PO Q6HR PRN #12 tablet PRN Reason: Pain , Severe (7-10) Ondansetron [Zofran Odt] 4 mg PO Q8HR PRN #14 tab.rapdis PRN Reason: Nausea And Vomiting Referrals: PRIMARY CAREMD [Primary Care Provider] - 3-5 Days [facility] [Provider Group] - 3-5 Days CHIRAG COSTELLO MD [Staff Physician] - 3-5 Days Time of Disposition: 08:18
[2020-07-23 08:12] LABS: BUN/Creatinine Ratio 19
[2020-07-23 08:34] VITALS: BP 130/84
== END 2020-07-23 08:34 | disposition home or self-care (01) ==
LOC: ED 02:13
DX: N39.0 Urinary tract infection, site not specified (principal); R07.89 Other chest pain; R10.13 Epigastric pain; Z79.1 Long term (current) use of non-steroidal anti-inflammatories (NSAID); Z79.899 Other long term (current) drug therapy
CPT/HCPCS: 36415; 71046; 80053; 81001; 81025; 83690; 84484; 85027; 87086; 93005

== ENCOUNTER 2020-10-08 09:24 | Emergency (ER) | payer SELFPAY ==
--- NOTE | 2020-10-08 09:31 | Event Note ---
ED Screening Note Date of service: 10/08/20 Time: 09:30 ED Screening Note: 35-year-old female presents the ER with chief complaint of lightheadedness over the past day. She denies vertigo. She denies any other associated symptoms. Denies any change in her sleep, diet or routine. She has any changes in urination or bowel movements. She denies any associated fever, chills, night sweats, headache, nausea, vomiting, diarrhea, chest pain, shortness of breath, weakness or any other associated symptoms. Brief assessment and the triage showed an NIH of 0 completely benign neurologic exam, negative Romberg sign, normal steady gait without ataxia. No cerebellar signs. This initial assessment/diagnostic orders/clinical plan/treatment(s) is/are subject to change based on patients health status, clinical progression and re- assessment by fellow clinical providers in the ED. Further treatment and workup at subsequent clinical providers discretion. Patient/guardian urged not to elope from the ED as their condition may be serious if not clinically assessed and managed. Initial orders include: CBC, CMP, urinalysis, urine
[2020-10-08 09:40] VITALS: BP 168/84
[2020-10-08 10:03] LABS: Basophils % (Auto) 0.4 % (0.0-1.8); Eosinophils # (Auto) 0.1 K/mm3 (0.0-0.4); Eosinophils % (Auto) 1.3 % (0.0-4.3); Hematocrit 35.1 % (30.3-42.9); Hemoglobin 11.7 gm/dl (10.1-14.3); Lymphocytes % (Auto) 30.5 % (13.4-35.0); Mean Corpuscular HGB Conc 33 % (30-34); Mean Corpuscular Volume 90 fl (79-97); Monocytes # (Auto) 0.3 K/mm3 (0.0-0.8); Monocytes % (Auto) 4.5 % (0.0-7.3); Platelet Count 367 K/mm3 (140-440); Red Blood Count 3.91 M/mm3 (3.65-5.03); Red Cell Distribution Width 14.7 % (13.2-15.2)
[2020-10-08 10:23] LABS: Alanine Aminotransferase 12 units/L (7-56); Albumin 3.4 g/dL (3.9-5); Blood Urea Nitrogen 6 mg/dL (7-17); Calcium 8.6 mg/dL (8.4-10.2); Hemolysis Index 1
[2020-10-08 10:25] LABS: BUN/Creatinine Ratio 9
[2020-10-08 11:00] LABS: Bilirubin,Urine NEG (Negative); Blood,Urine NEG (Negative); Color,Urine Yellow (Yellow); Mucus,Urine FEW /HPF; Protein,Urine <15 mg/dL mg/dL (Negative); Urobilinogen,Urine < 2.0 mg/dL (<2.0)
[2020-10-08 11:02] LABS: HCG Qualitative,Urine Negative (Negative)
--- NOTE | 2020-10-08 11:59 | Emergency Department Report ---
ED General Adult HPI - General Chief complaint: Dizziness Stated complaint: LIGHT HEADED Time Seen by Provider: 10/08/20 11:52 Source: patient Mode of arrival: Ambulatory Limitations: No Limitations - History of Present Illness Initial comments: This very pleasant 35-year-old female presents the ER with chief complaint of lightheadedness over the past day. She denies vertigo. She denies any other associated symptoms. Denies any change in her sleep, diet or routine. She has any changes in urination or bowel movements. She denies any associated fever, chills, night sweats, headache, nausea, vomiting, diarrhea, chest pain, shortness of breath, weakness or any other associated symptoms. She denies any known past medical history, current medications or known allergies medications. - Related Data Previous Rx's Medication Instructions Recorded Last Taken Type Hyoscyamine Subl [Levsin Sl] 0.125 mg SL Q4HR PRN #7 tablet 06/20/14 Unknown Rx Promethazine [Phenergan] 25 mg PO Q6H PRN #10 tablet 06/20/14 Unknown Rx Ibuprofen [Motrin 800 MG tab] 800 mg PO Q8HR PRN #90 tablet 05/02/15 Unknown Rx oxyCODONE /ACETAMINOPHEN [Percocet 1 tab PO Q6HR PRN #30 tablet 05/02/15 Unknown Rx 5/325 mg] Naproxen 500 mg PO Q12H PRN #30 tablet 08/01/19 Unknown Rx predniSONE [Deltasone] 40 mg PO QDAY #12 tab 08/01/19 Unknown Rx tiZANidine [Zanaflex 4mg TAB] 4 mg PO Q8H PRN #21 tablet 08/01/19 Unknown Rx traMADoL [Ultram] 50 mg PO Q6HR PRN #10 tablet 08/01/19 Unknown Rx Ketorolac [Toradol] 10 mg PO Q8H PRN #10 tablet 04/14/20 Unknown Rx Famotidine [Pepcid] 20 mg PO BID #20 tablet 07/23/20 Unknown Rx Nitrofurantoin [place]/M-Cryst 100 mg PO Q12HR #10 capsule 07/23/20 Unknown Rx [Macrobid CAP] Ondansetron [Zofran Odt] 4 mg PO Q8HR PRN #14 tab.rapdis 07/23/20 Unknown Rx traMADoL [Ultram 50 MG tab] 50 mg PO Q6HR PRN #12 tablet 07/23/20 Unknown Rx Nitrofurantoin [place]/M-Cryst 100 mg PO Q12HR #14 capsule 10/08/20 Unknown Rx [Macrobid CAP] Allergies Allergy/AdvReac Type Severity Reaction Status Date / Time No Known Allergies Allergy Verified 03/22/15 05:04 ED Review of Systems ROS: Stated complaint: LIGHT HEADED Other details as noted in HPI Comment: All other systems reviewed and negative Constitutional: denies: chills, fever Eyes: denies: eye pain, eye discharge, vision change ENT: denies: ear pain, throat pain Respiratory: denies: cough, shortness of breath, wheezing Cardiovascular: denies: chest pain, palpitations Endocrine: no symptoms reported Gastrointestinal: denies: abdominal pain, nausea, diarrhea Genitourinary: denies: urgency, dysuria, discharge Musculoskeletal: denies: back pain, joint swelling, arthralgia Skin: denies: rash, lesions Neurological: as per HPI. denies: headache, weakness, paresthesias Psychiatric: denies: anxiety, depression Hematological/Lymphatic: denies: easy bleeding, easy bruising ED Past Medical Hx - Past Medical History Previous Medical History?: No Hx Hypertension: No Hx Congestive Heart Failure: No Hx Diabetes: No Hx Deep Vein Thrombosis: No Hx Renal Disease: No Hx Sickle Cell Disease: No Hx Seizures: No Hx Asthma: No Hx COPD: No Hx HIV: No Additional medical history: MORBID OBESITY - Surgical History Past Surgical History?: No - Social History Smoking Status: Never Smoker Substance Use Type: None - Medications Home Medications: Home Medications Medication Instructions Recorded Confirmed Last Taken Type Hyoscyamine Subl [Levsin Sl] 0.125 mg SL Q4HR PRN #7 tablet 06/20/14 05/05/15 Unknown Rx Promethazine [Phenergan] 25 mg PO Q6H PRN #10 tablet 06/20/14 05/05/15 Unknown Rx Ibuprofen [Motrin 800 MG tab] 800 mg PO Q8HR PRN #90 tablet 05/02/15 Unknown Rx oxyCODONE /ACETAMINOPHEN [Percocet 1 tab PO Q6HR PRN #30 tablet 05/02/15 Unknown Rx 5/325 mg] Naproxen 500 mg PO Q12H PRN #30 tablet 08/01/19 Unknown Rx predniSONE [Deltasone] 40 mg PO QDAY #12 tab 08/01/19 Unknown Rx tiZANidine [Zanaflex 4mg TAB] 4 mg PO Q8H PRN #21 tablet 08/01/19 Unknown Rx traMADoL [Ultram] 50 mg PO Q6HR PRN #10 tablet 08/01/19 Unknown Rx Ketorolac [Toradol] 10 mg PO Q8H PRN #10 tablet 04/14/20 Unknown Rx Famotidine [Pepcid] 20 mg PO BID #20 tablet 07/23/20 Unknown Rx Nitrofurantoin [place]/M-Cryst 100 mg PO Q12HR #10 capsule 07/23/20 Unknown Rx [Macrobid CAP] Ondansetron [Zofran Odt] 4 mg PO Q8HR PRN #14 tab.rapdis 07/23/20 Unknown Rx traMADoL [Ultram 50 MG tab] 50 mg PO Q6HR PRN #12 tablet 07/23/20 Unknown Rx Nitrofurantoin [place]/M-Cryst 100 mg PO Q12HR #14 capsule 10/08/20 Unknown Rx [Macrobid CAP] ED Physical Exam - General Limitations: No Limitations General appearance: alert, in no apparent distress - Head Head exam: Present: atraumatic, normocephalic - Eye Eye exam: Present: normal appearance, PERRL, EOMI Pupils: Present: normal accommodation - ENT ENT exam: Present: normal exam, normal orophraynx, mucous membranes moist - Neck Neck exam: Present: normal inspection, full ROM. Absent: tenderness, meningismus - Respiratory Respiratory exam: Present: normal lung sounds bilaterally. Absent: respiratory distress, wheezes, rales, rhonchi, stridor, chest wall tenderness - Cardiovascular Cardiovascular Exam: Present: regular rate, normal rhythm, normal heart sounds. Absent: systolic murmur, diastolic murmur, rubs, gallop - GI/Abdominal GI/Abdominal exam: Present: soft, normal bowel sounds. Absent: distended, tenderness, guarding, rebound, rigid - Extremities Exam Extremities exam: Present: normal inspection, full ROM, normal capillary refill. Absent: tenderness, calf tenderness (No posterior calf tenderness, negative Homans' sign bilaterally) - Back Exam Back exam: Present: normal inspection, full ROM. Absent: tenderness, CVA tenderness (R), CVA tenderness (L) - Neurological Exam Neurological exam: Present: alert, oriented X3, CN II-XII intact, normal gait, other (Normal finger-nose and iybi-bn-nxcj, normal gait without ataxia, no focal neurologic deficits) - Psychiatric Psychiatric exam: Present: normal affect, normal mood - Skin Skin exam: Present: warm, dry, intact, normal color. Absent: rash ED Course Vital Signs 10/08/20 09:25 Temperature 98.6 F Pulse Rate 71 Respiratory 16 Rate Blood Pressure 168/84 O2 Sat by Pulse 100 Oximetry ED Medical Decision Making - Lab Data Result diagrams: 10/08/20 09:39 10/08/20 09:39 Lab Results 10/08/20 10/08/20 10/08/20 Range/Units 09:39 09:39 Unknown WBC 6.6 (4.5-11.0) K/mm3 RBC 3.91 (3.65-5.03) M/mm3 Hgb 11.7 (10.1-14.3) gm/dl Hct 35.1 (30.3-42.9) % MCV 90 (79-97) fl MCH 30 (28-32) pg MCHC 33 (30-34) % RDW 14.7 (13.2-15.2) % Plt Count 367 (140-440) K/mm3 Lymph % (Auto) 30.5 (13.4-35.0) % [place] % (Auto) 4.5 (0.0-7.3) % Eos % (Auto) 1.3 (0.0-4.3) % Baso % (Auto) 0.4 (0.0-1.8) % Lymph # (Auto) 2.0 (1.2-5.4) K/mm3 [place] # (Auto) 0.3 (0.0-0.8) K/mm3 Eos # (Auto) 0.1 (0.0-0.4) K/mm3 Baso # (Auto) 0.0 (0.0-0.1) K/mm3 Seg Neutrophils % 63.3 (40.0-70.0) % Seg Neutrophils # 4.2 (1.8-7.7) K/mm3 Sodium 135 L (137-145) mmol/L Potassium 3.8 (3.6-5.0) mmol/L Chloride 102.9 (98-107) mmol/L Carbon Dioxide 23 (22-30) mmol/L Anion Gap 13 mmol/L BUN 6 L (7-17) mg/dL Creatinine 0.7 (0.6-1.2) mg/dL Estimated GFR > 60 ml/min BUN/Creatinine Ratio 9 % Glucose 94 (65-100) mg/dL Calcium 8.6 (8.4-10.2) mg/dL Total Bilirubin 0.20 (0.1-1.2) mg/dL AST 14 (5-40) units/L ALT 12 (7-56) units/L Alkaline Phosphatase 48 (35-129) units/L Total Protein 6.5 (6.3-8.2) g/dL Albumin 3.4 L (3.9-5) g/dL Albumin/Globulin Ratio 1.1 % Urine Color Yellow (Yellow) Urine Turbidity Clear (Clear) Urine pH 7.0 (5.0-7.0) Ur Specific [place] 1.010 (1.003-1.030) Urine Protein <15 mg/dl (Negative) mg/dL Urine Glucose (UA) Neg (Negative) mg/dL Urine Ketones Neg (Negative) mg/dL Urine Blood Neg (Negative) Urine Nitrite Neg (Negative) Urine Bilirubin Neg (Negative) Urine Urobilinogen < 2.0 (<2.0) mg/dL Ur Leukocyte Esterase Tr (Negative) Urine WBC (Auto) 8.0 H (0.0-6.0) /HPF Urine RBC (Auto) 1.0 (0.0-6.0) /HPF U Epithel Cells (Auto) 2.0 (0-13.0) /HPF Urine Mucus Few /HPF Urine Yeast (Budding) Few /HPF Urine HCG, Qual Negative (Negative) - Medical Decision Making Patient nontoxic in no acute distress. Vital signs are stable. Blood work returned relatively unremarkable other than a very slightly decreased sodium. The patient also had a mild urinary tract infection. She was asymptomatic on discharge. Repeated blood pressure was 151/53. Recommend she follow-up with primary care doctor which I will provide for her and return to the ER with any change or worsening symptoms. She had no focal neurologic deficits and NIH of 0 with no cerebellar signs making my suspicion for posterior CVA unlikely. She verbalized understand the diagnosis, treatment plan and follow-up instructions and all of her questions were answered. she is PERC negative and low risk by wells criteria making PE unlikely. - Differential Diagnosis Anemia, dehydration, UTI Critical care attestation.: If time is entered above; I have spent that time in minutes in the direct care of this critically ill patient, excluding procedure time. ED Disposition Clinical Impression: Lightheadedness Urinary tract infection Qualifiers: Urinary tract infection type: acute cystitis Hematuria presence: without hematuria Qualified Code(s): N30.00 - Acute cystitis without hematuria Disposition: TO HOME OR SELFCARE Is pt being admited?: No Condition: Stable Instructions: Urinary Tract Infection, Adult, Dizziness, [id number] Prescriptions: Nitrofurantoin [place]/M-Cryst [Macrobid CAP] 100 mg PO Q12HR #14 capsule Referrals: PRIMARY CAREMD [Primary Care Provider] - 3-5 Days COREY BELTRE MD [Staff Physician] - 3-5 Days [facility] [Provider Group] - 3-5 Days Time of Disposition: 11:58
== END 2020-10-08 12:10 | disposition home or self-care (01) ==
LOC: ED 09:24
DX: N39.0 Urinary tract infection, site not specified (principal); R42 Dizziness and giddiness; E66.01 Morbid (severe) obesity due to excess calories; Z79.899 Other long term (current) drug therapy; Z68.43 Body mass index [BMI] 50.0-59.9, adult
CPT/HCPCS: 36415; 80053; 81001; 81025; 85025

== ENCOUNTER 2020-12-15 04:51 | Emergency (ER) | payer SELFPAY ==
[2020-12-15 05:08] VITALS: BP 121/57
[2020-12-15 05:46] LABS: Basophils % (Auto) 0.5 % (0.0-1.8); Eosinophils # (Auto) 0.1 K/mm3 (0.0-0.4); Eosinophils % (Auto) 1.1 % (0.0-4.3); Hematocrit 35.9 % (30.3-42.9); Hemoglobin 11.9 gm/dl (10.1-14.3); Lymphocytes # (Auto) 2.2 K/mm3 (1.2-5.4); Lymphocytes % (Auto) 24.2 % (13.4-35.0); Mean Corpuscular HGB Conc 33 % (30-34); Mean Corpuscular Volume 90 fl (79-97); Monocytes # (Auto) 0.4 K/mm3 (0.0-0.8); Monocytes % (Auto) 4.8 % (0.0-7.3); Platelet Count 326 K/mm3 (140-440); Red Blood Count 4.01 M/mm3 (3.65-5.03); Red Cell Distribution Width 15.3 % (13.2-15.2)
[2020-12-15 06:11] LABS: Alanine Aminotransferase 7 units/L (7-56); Albumin 4.2 g/dL (3.9-5); Blood Urea Nitrogen 8 mg/dL (7-17); Calcium 9.1 mg/dL (8.4-10.2); Hemolysis Index 25
[2020-12-15 06:12] LABS: BUN/Creatinine Ratio 13
[2020-12-15 06:49] LABS: HCG Qualitative,Urine Negative (Negative)
[2020-12-15 06:50] LABS: Bilirubin,Urine NEG (Negative); Blood,Urine SM (Negative); Color,Urine Yellow (Yellow); Mucus,Urine 2+ /HPF
--- NOTE | 2020-12-15 08:19 | XRay Report ---
CHEST 2 VIEWS INDICATION: chest pain. COMPARISON: 07/23/2020 FINDINGS: Support devices: None. Heart: Within normal limits. Lungs/pleura: No acute air space or interstitial disease. No pneumothorax. Additional findings: None. IMPRESSION: No acute findings. Signer Name: Eh Stinson Jr, MD Signed: 12/15/2020 8:15 AM Workstation Name: [id number]
--- NOTE | 2020-12-15 19:49 | Electrocardiograph Report ---
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
== END 2020-12-15 05:30 | disposition left against medical advice (07) ==
LOC: ED 04:51
DX: R07.9 Chest pain, unspecified (principal); Z53.21 Procedure and treatment not carried out due to patient leaving prior to being seen by health care provider
CPT/HCPCS: 36415; 71046; 80053; 81001; 81025; 83690; 84484; 85025; 87086; 93005

== ENCOUNTER 2021-01-11 07:30 | Emergency (ER) | payer SELFPAY ==
[2021-01-11 08:10] VITALS: BP 138/79
[2021-01-11 09:49] LABS: Basophils % (Auto) 0.5 % (0.0-1.8); Eosinophils % (Auto) 0.4 % (0.0-4.3); Hematocrit 36.3 % (30.3-42.9); Hemoglobin 11.9 gm/dl (10.1-14.3); Lymphocytes # (Auto) 1.3 K/mm3 (1.2-5.4); Lymphocytes % (Auto) 15.8 % (13.4-35.0); Mean Corpuscular HGB Conc 33 % (30-34); Mean Corpuscular Volume 89 fl (79-97); Monocytes # (Auto) 0.4 K/mm3 (0.0-0.8); Monocytes % (Auto) 5.2 % (0.0-7.3); Platelet Count 333 K/mm3 (140-440); Red Blood Count 4.08 M/mm3 (3.65-5.03)
[2021-01-11 10:04] LABS: Alanine Aminotransferase 6 units/L (7-56); Albumin 4.1 g/dL (3.9-5); Blood Urea Nitrogen 7 mg/dL (7-17); Calcium 9.1 mg/dL (8.4-10.2); Hemolysis Index 4
[2021-01-11 10:06] LABS: BUN/Creatinine Ratio 12
[2021-01-11 10:15] LABS: Bilirubin,Urine NEG (Negative); Blood,Urine MOD (Negative); Color,Urine Yellow (Yellow); Mucus,Urine 1+ /HPF; Protein,Urine <15 mg/dL mg/dL (Negative); Urobilinogen,Urine < 2.0 mg/dL (<2.0)
[2021-01-11 10:48] LABS: HCG Qualitative,Urine Negative (Negative)
[2021-01-11] MEDS ORDERED: DICYCLOMINE 10 MG/5 ML ORAL LIQD PO ONE (11:13)
[2021-01-11] MEDS ORDERED: LIDOCAINE VISCOUS 2% 15 ML ORAL LIQD PO ONE (11:13)
[2021-01-11] MEDS ORDERED: ALUM-MAG HYDROXIDE-SIMETHICONE 200-200-20MG/5ML ORAL LIQD 30 ML PO ONE (11:13)
[2021-01-11] MEDS ORDERED: ONDANSETRON 4 MG ODT TAB PO ONE (11:14)
[2021-01-11] MEDS ORDERED: FAMOTIDINE 20 MG TAB PO ONE (11:14)
--- NOTE | 2021-01-11 11:19 | Emergency Department Report ---
<TAINA TIRADO - Last Filed: 01/11/21 12:28> ED General Adult HPI - General Chief complaint: Abdominal Pain Stated complaint: ABD PAIN/LOWER BACK PAIN Time Seen by Provider: 01/11/21 10:03 Source: patient Mode of arrival: Ambulatory Limitations: No Limitations - History of Present Illness Initial comments: 35-year-old -Indian female patient presents with complaints of epigastric pain x2 days and low back pain starting last night. She states one episode of vomiting this morning while trying to drink fluids. Patient reports the pain radiates into her chest and is burning-like and rates her pain as 8/10 in severity. She denies trying any OTC medications for her symptoms. She does report a history of GERD, but denies any other past medical history. Patient also denies any hematemesis/coffee-ground emesis, diarrhea/constipation, melena/hematochezia, or dysuria/hematuria/urinary frequency/vaginal discharge/v aginal bleeding/dyspareunia. Patient states her back pain is recurrent and denies any new injuries, heavy lifting, numbness/tingling/weakness in her limbs, difficulty with ambulation, or loss of bladder/bowel control. Severity scale (0 -10): 7 - Related Data Previous Rx's Medication Instructions Recorded Last Taken Type Hyoscyamine Subl [Levsin Sl] 0.125 mg SL Q4HR PRN #7 tablet 06/20/14 Unknown Rx Promethazine [Phenergan] 25 mg PO Q6H PRN #10 tablet 06/20/14 Unknown Rx Ibuprofen [Motrin 800 MG tab] 800 mg PO Q8HR PRN #90 tablet 05/02/15 Unknown Rx oxyCODONE /ACETAMINOPHEN [Percocet 1 tab PO Q6HR PRN #30 tablet 05/02/15 Unknown Rx 5/325 mg] Naproxen 500 mg PO Q12H PRN #30 tablet 08/01/19 Unknown Rx predniSONE [Deltasone] 40 mg PO QDAY #12 tab 08/01/19 Unknown Rx tiZANidine [Zanaflex 4mg TAB] 4 mg PO Q8H PRN #21 tablet 08/01/19 Unknown Rx traMADoL [Ultram] 50 mg PO Q6HR PRN #10 tablet 08/01/19 Unknown Rx Ketorolac [Toradol] 10 mg PO Q8H PRN #10 tablet 04/14/20 Unknown Rx Famotidine [Pepcid] 20 mg PO BID #20 tablet 07/23/20 Unknown Rx Nitrofurantoin [place]/M-Cryst 100 mg PO Q12HR #10 capsule 07/23/20 Unknown Rx [Macrobid CAP] Ondansetron [Zofran Odt] 4 mg PO Q8HR PRN #14 tab.rapdis 07/23/20 Unknown Rx traMADoL [Ultram 50 MG tab] 50 mg PO Q6HR PRN #12 tablet 07/23/20 Unknown Rx Nitrofurantoin [place]/M-Cryst 100 mg PO Q12HR #14 capsule 10/08/20 Unknown Rx [Macrobid CAP] Dicyclomine [Bentyl] 20 mg PO QID PRN #30 tablet 01/11/21 Unknown Rx Famotidine [Pepcid] 20 mg PO BID 10 Days #20 tablet 01/11/21 Unknown Rx Nitrofurantoin [place]/M-Cryst 100 mg PO Q12HR 5 Days #10 capsule 01/11/21 Unknown Rx [Macrobid CAP] Sucralfate [Carafate] 1 gm PO QID 10 Days #40 tablet 01/11/21 Unknown Rx Allergies Allergy/AdvReac Type Severity Reaction Status Date / Time No Known Allergies Allergy Verified 03/22/15 05:04 ED Review of Systems Constitutional: denies: chills, diaphoresis, fever, malaise, weakness ENT: denies: throat pain Respiratory: denies: cough, shortness of breath Cardiovascular: as per HPI Gastrointestinal: abdominal pain, nausea, vomiting. denies: diarrhea, constipation, hematemesis, melena, hematochezia Genitourinary: denies: urgency, dysuria, frequency, hematuria Neurological: denies: headache Hematological/Lymphatic: denies: easy bruising ED Past Medical Hx - Past Medical History Previous Medical History?: Yes Hx Hypertension: No Hx Congestive Heart Failure: No Hx Diabetes: No Hx Deep Vein Thrombosis: No Hx Renal Disease: No Hx Sickle Cell Disease: No Hx Seizures: No Hx Asthma: No Hx COPD: No Hx HIV: No Additional medical history: MORBID OBESITY - Surgical History Past Surgical History?: No Additional Surgical History: denies - Social History Smoking Status: Never Smoker Substance Use Type: None - Medications Home Medications: Home Medications Medication Instructions Recorded Confirmed Last Taken Type Hyoscyamine Subl [Levsin Sl] 0.125 mg SL Q4HR PRN #7 tablet 06/20/14 05/05/15 Unknown Rx Promethazine [Phenergan] 25 mg PO Q6H PRN #10 tablet 06/20/14 05/05/15 Unknown Rx Ibuprofen [Motrin 800 MG tab] 800 mg PO Q8HR PRN #90 tablet 05/02/15 Unknown Rx oxyCODONE /ACETAMINOPHEN [Percocet 1 tab PO Q6HR PRN #30 tablet 05/02/15 Unknown Rx 5/325 mg] Naproxen 500 mg PO Q12H PRN #30 tablet 08/01/19 Unknown Rx predniSONE [Deltasone] 40 mg PO QDAY #12 tab 08/01/19 Unknown Rx tiZANidine [Zanaflex 4mg TAB] 4 mg PO Q8H PRN #21 tablet 08/01/19 Unknown Rx traMADoL [Ultram] 50 mg PO Q6HR PRN #10 tablet 08/01/19 Unknown Rx Ketorolac [Toradol] 10 mg PO Q8H PRN #10 tablet 04/14/20 Unknown Rx Famotidine [Pepcid] 20 mg PO BID #20 tablet 07/23/20 Unknown Rx Nitrofurantoin [place]/M-Cryst 100 mg PO Q12HR #10 capsule 07/23/20 Unknown Rx [Macrobid CAP] Ondansetron [Zofran Odt] 4 mg PO Q8HR PRN #14 tab.rapdis 07/23/20 Unknown Rx traMADoL [Ultram 50 MG tab] 50 mg PO Q6HR PRN #12 tablet 07/23/20 Unknown Rx Nitrofurantoin [place]/M-Cryst 100 mg PO Q12HR #14 capsule 10/08/20 Unknown Rx [Macrobid CAP] Dicyclomine [Bentyl] 20 mg PO QID PRN #30 tablet 01/11/21 Unknown Rx Famotidine [Pepcid] 20 mg PO BID 10 Days #20 tablet 01/11/21 Unknown Rx Nitrofurantoin [place]/M-Cryst 100 mg PO Q12HR 5 Days #10 capsule 01/11/21 Unknown Rx [Macrobid CAP] Sucralfate [Carafate] 1 gm PO QID 10 Days #40 tablet 01/11/21 Unknown Rx ED Physical Exam - General Limitations: No Limitations General appearance: alert, in no apparent distress, obese (Morbid) - Head Head exam: Present: atraumatic, normocephalic - Eye Eye exam: Present: normal appearance. Absent: scleral icterus - Respiratory Respiratory exam: Present: normal lung sounds bilaterally. Absent: respiratory distress - Cardiovascular Cardiovascular Exam: Present: regular rate, normal rhythm - GI/Abdominal GI/Abdominal exam: Present: soft, tenderness (Epigastric), normal bowel sounds. Absent: distended, guarding, rebound, rigid - Back Exam Back exam: Present: full ROM. Absent: CVA tenderness (R), CVA tenderness (L), paraspinal tenderness, vertebral tenderness - Expanded Back Exam Expanded Back exam: Absent: saddle anesthesia - Neurological Exam Neurological exam: Present: alert, oriented X3, normal gait - Expanded Neurological Exam Expanded Sensory exam: Lower Extremity Light Touch: Normal Motor strength exam: RLE: 5, LLE: 5 - Psychiatric Psychiatric exam: Present: normal affect, normal mood - Skin Skin exam: Present: warm, dry, intact, normal color. Absent: rash, diaphoretic ED Medical Decision Making - Lab Data Result diagrams: 01/11/21 09:28 01/11/21 09:28 Lab Results 01/11/21 01/11/21 01/11/21 Range/Units 09:28 09:28 09:44 WBC 8.0 (4.5-11.0) K/mm3 RBC 4.08 (3.65-5.03) M/mm3 Hgb 11.9 (10.1-14.3) gm/dl Hct 36.3 (30.3-42.9) % MCV 89 (79-97) fl MCH 29 (28-32) pg MCHC 33 (30-34) % RDW 15.0 (13.2-15.2) % Plt Count 333 (140-440) K/mm3 Lymph % (Auto) 15.8 (13.4-35.0) % [place] % (Auto) 5.2 (0.0-7.3) % Eos % (Auto) 0.4 (0.0-4.3) % Baso % (Auto) 0.5 (0.0-1.8) % Lymph # (Auto) 1.3 (1.2-5.4) K/mm3 [place] # (Auto) 0.4 (0.0-0.8) K/mm3 Eos # (Auto) 0.0 (0.0-0.4) K/mm3 Baso # (Auto) 0.0 (0.0-0.1) K/mm3 Seg Neutrophils % 78.1 H (40.0-70.0) % Seg Neutrophils # 6.2 (1.8-7.7) K/mm3 Sodium 139 (137-145) mmol/L Potassium 3.6 (3.6-5.0) mmol/L Chloride 104.1 (98-107) mmol/L Carbon Dioxide 26 (22-30) mmol/L Anion Gap 13 mmol/L BUN 7 (7-17) mg/dL Creatinine 0.6 (0.6-1.2) mg/dL Estimated GFR > 60 ml/min BUN/Creatinine Ratio 12 % Glucose 99 (65-100) mg/dL Calcium 9.1 (8.4-10.2) mg/dL Total Bilirubin 0.30 (0.1-1.2) mg/dL AST 10 (5-40) units/L ALT 6 L (7-56) units/L Alkaline Phosphatase 51 (35-129) units/L Total Protein 7.1 (6.3-8.2) g/dL Albumin 4.1 (3.9-5) g/dL Albumin/Globulin Ratio 1.4 % Urine Color Yellow (Yellow) Urine Turbidity Clear (Clear) Urine pH 5.0 (5.0-7.0) Ur Specific [place] 1.016 (1.003-1.030) Urine Protein <15 mg/dl (Negative) mg/dL Urine Glucose (UA) Neg (Negative) mg/dL Urine Ketones Tr (Negative) mg/dL Urine Blood Mod (Negative) Urine Nitrite Neg (Negative) Urine Bilirubin Neg (Negative) Urine Urobilinogen < 2.0 (<2.0) mg/dL Ur Leukocyte Esterase Tr (Negative) Urine WBC (Auto) 14.0 H (0.0-6.0) /HPF Urine RBC (Auto) 5.0 (0.0-6.0) /HPF U Epithel Cells (Auto) 1.0 (0-13.0) /HPF Urine Mucus 1+ /HPF Urine HCG, Qual Negative (Negative) - Medical Decision Making 35-year-old -Indian female patient presents with complaints of epigastric pain x2 days and low back pain starting last night. She states one episode of vomiting this morning while trying to drink fluids. Patient reports the pain radiates into her chest and is burning-like and rates her pain as 8/10 in severity. She denies trying any OTC medications for her symptoms. She does report a history of GERD, but denies any other past medical history. Patient also denies any hematemesis/coffee-ground emesis, diarrhea/constipation, melena/hematochezia, or dysuria/hematuria/urinary frequency/vaginal discharge/vaginal bleeding/dyspareunia. Patient states her back pain is recurrent and denies any new injuries, heavy lifting, numbness/tingling/weakness in her limbs, difficulty with ambulation, or loss of bladder/bowel control. no guarding or rebound noted on abdominal exam. Patient given oral Pepcid and GI cocktail. She states her symptoms have significantly improved. No vomiting observed here in the ED. Her vitals are within normal limits, she is well- appearing, she is stable for discharge home. Recommend follow-up with PCP and gastroenterology, referrals were provided. Discussed in great detail signs and symptoms that should prompt immediate return to the emergency department with patient who verbalizes understanding. ED Disposition Clinical Impression: Epigastric abdominal pain, Pyuria Disposition: - TO HOME OR SELFCARE Is pt being admited?: No Condition: Stable Instructions: Abdominal Pain, Adult, Food Choices for Gastroesophageal Reflux Disease, Child, [id number], Gastritis, Adult, Urinary Tract Infection, Adult, Gastroesophageal Reflux Disease, Adult, Abdominal Pain (ED) Prescriptions: Dicyclomine [Bentyl] 20 mg PO QID PRN #30 tablet PRN Reason: abdominal cramping Sucralfate [Carafate] 1 gm PO QID 10 Days #40 tablet Nitrofurantoin [place]/M-Cryst [Macrobid CAP] 100 mg PO Q12HR 5 Days #10 capsule Famotidine [Pepcid] 20 mg PO BID 10 Days #20 tablet Referrals: [facility] [Provider Group] - 3-5 Days [facility] [Provider Group] - 3-5 Days <RAJ LORENZO - Last Filed: 01/15/21 11:58> ED General Adult HPI - General PUI?: No ED Review of Systems ROS: Stated complaint: ABD PAIN/LOWER BACK PAIN Other details as noted in HPI ED Course Vital Signs 01/11/21 08:07 Temperature 99.4 F Pulse Rate 77 Respiratory 16 Rate Blood Pressure 138/79 [Right] O2 Sat by Pulse 97 Oximetry ED Medical Decision Making - Lab Data Result diagrams: 01/11/21 09:28 01/11/21 09:28 Critical care attestation.: If time is entered above; I have spent that time in minutes in the direct care of this critically ill patient, excluding procedure time. ED Disposition Is pt being admited?: No Does the pt Need Aspirin: No
== END 2021-01-11 12:46 | disposition home or self-care (01) ==
LOC: ED 07:30
DX: R10.13 Epigastric pain (principal); R82.81 Pyuria; E66.01 Morbid (severe) obesity due to excess calories; Z68.43 Body mass index [BMI] 50.0-59.9, adult; Z79.899 Other long term (current) drug therapy
CPT/HCPCS: 36415; 80053; 81001; 81025; 83690; 85025; 87086; Q0162

== ENCOUNTER 2021-04-03 02:18 | Emergency (ER) | payer MEDICAID ==
[2021-04-03 02:42] VITALS: BP 127/77
[2021-04-03 03:24] LABS: HCG Qualitative,Urine Positive (Negative)
--- NOTE | 2021-04-03 04:36 | Emergency Department Report ---
ED Lower Extremity HPI - General Chief Complaint: Extremity Injury, Lower Stated Complaint: FALL/RT KNEE INJURY Time Seen by Provider: 04/03/21 03:13 Source: patient Mode of arrival: Ambulatory Limitations: No Limitations - History of Present Illness MD Complaint: knee injury (35-year-old female with elevated BMI presents emerged from complaining of a mechanical trip and fall of an object in her low mom causing her right knee to have an impression type neck mechanism to descent to the floor resulting in pain and some mild swelling to the medial and anterior left knee. Pa) -: Sudden Injury: Knee: Right Type of Injury: inversion Place: home Severity: mild, moderate Improves With: nothing Worsens With: nothing Context: fall Associated Symptoms: swelling, able to partially bear weight. denies: tingling - Related Data Previous Rx's Medication Instructions Recorded Last Taken Type Hyoscyamine Subl [Levsin Sl] 0.125 mg SL Q4HR PRN #7 tablet 06/20/14 Unknown Rx Promethazine [Phenergan] 25 mg PO Q6H PRN #10 tablet 06/20/14 Unknown Rx Ibuprofen [Motrin 800 MG tab] 800 mg PO Q8HR PRN #90 tablet 05/02/15 Unknown Rx oxyCODONE /ACETAMINOPHEN [Percocet 1 tab PO Q6HR PRN #30 tablet 05/02/15 Unknown Rx 5/325 mg] Naproxen 500 mg PO Q12H PRN #30 tablet 08/01/19 Unknown Rx predniSONE [Deltasone] 40 mg PO QDAY #12 tab 08/01/19 Unknown Rx tiZANidine [Zanaflex 4mg TAB] 4 mg PO Q8H PRN #21 tablet 08/01/19 Unknown Rx traMADoL [Ultram] 50 mg PO Q6HR PRN #10 tablet 08/01/19 Unknown Rx Ketorolac [Toradol] 10 mg PO Q8H PRN #10 tablet 04/14/20 Unknown Rx Famotidine [Pepcid] 20 mg PO BID #20 tablet 07/23/20 Unknown Rx Nitrofurantoin [place]/M-Cryst 100 mg PO Q12HR #10 capsule 07/23/20 Unknown Rx [Macrobid CAP] Ondansetron [Zofran Odt] 4 mg PO Q8HR PRN #14 tab.rapdis 07/23/20 Unknown Rx traMADoL [Ultram 50 MG tab] 50 mg PO Q6HR PRN #12 tablet 07/23/20 Unknown Rx Nitrofurantoin [place]/M-Cryst 100 mg PO Q12HR #14 capsule 10/08/20 Unknown Rx [Macrobid CAP] Dicyclomine [Bentyl] 20 mg PO QID PRN #30 tablet 01/11/21 Unknown Rx Famotidine [Pepcid] 20 mg PO BID 10 Days #20 tablet 01/11/21 Unknown Rx Nitrofurantoin [place]/M-Cryst 100 mg PO Q12HR 5 Days #10 capsule 01/11/21 Unknown Rx [Macrobid CAP] Sucralfate [Carafate] 1 gm PO QID 10 Days #40 tablet 01/11/21 Unknown Rx Allergies Allergy/AdvReac Type Severity Reaction Status Date / Time No Known Allergies Allergy Verified 04/03/21 02:39 ED Review of Systems ROS: Stated complaint: FALL/RT KNEE INJURY Other details as noted in HPI Comment: All other systems reviewed and negative ED Past Medical Hx - Past Medical History Hx Hypertension: No Hx Congestive Heart Failure: No Hx Diabetes: No Hx Deep Vein Thrombosis: No Hx Renal Disease: No Hx Sickle Cell Disease: No Hx Seizures: No Hx Asthma: No Hx COPD: No Hx HIV: No Additional medical history: MORBID OBESITY - Surgical History Additional Surgical History: denies - Social History Smoking Status: Never Smoker Substance Use Type: None - Medications Home Medications: Home Medications Medication Instructions Recorded Confirmed Last Taken Type Hyoscyamine Subl [Levsin Sl] 0.125 mg SL Q4HR PRN #7 tablet 06/20/14 05/05/15 Unknown Rx Promethazine [Phenergan] 25 mg PO Q6H PRN #10 tablet 06/20/14 05/05/15 Unknown Rx Ibuprofen [Motrin 800 MG tab] 800 mg PO Q8HR PRN #90 tablet 05/02/15 Unknown Rx oxyCODONE /ACETAMINOPHEN [Percocet 1 tab PO Q6HR PRN #30 tablet 05/02/15 Unknown Rx 5/325 mg] Naproxen 500 mg PO Q12H PRN #30 tablet 08/01/19 Unknown Rx predniSONE [Deltasone] 40 mg PO QDAY #12 tab 08/01/19 Unknown Rx tiZANidine [Zanaflex 4mg TAB] 4 mg PO Q8H PRN #21 tablet 08/01/19 Unknown Rx traMADoL [Ultram] 50 mg PO Q6HR PRN #10 tablet 08/01/19 Unknown Rx Ketorolac [Toradol] 10 mg PO Q8H PRN #10 tablet 04/14/20 Unknown Rx Famotidine [Pepcid] 20 mg PO BID #20 tablet 07/23/20 Unknown Rx Nitrofurantoin [place]/M-Cryst 100 mg PO Q12HR #10 capsule 07/23/20 Unknown Rx [Macrobid CAP] Ondansetron [Zofran Odt] 4 mg PO Q8HR PRN #14 tab.rapdis 07/23/20 Unknown Rx traMADoL [Ultram 50 MG tab] 50 mg PO Q6HR PRN #12 tablet 07/23/20 Unknown Rx Nitrofurantoin [place]/M-Cryst 100 mg PO Q12HR #14 capsule 10/08/20 Unknown Rx [Macrobid CAP] Dicyclomine [Bentyl] 20 mg PO QID PRN #30 tablet 01/11/21 Unknown Rx Famotidine [Pepcid] 20 mg PO BID 10 Days #20 tablet 01/11/21 Unknown Rx Nitrofurantoin [place]/M-Cryst 100 mg PO Q12HR 5 Days #10 capsule 01/11/21 Unknown Rx [Macrobid CAP] Sucralfate [Carafate] 1 gm PO QID 10 Days #40 tablet 01/11/21 Unknown Rx ED Physical Exam - General Limitations: No Limitations General appearance: alert, in no apparent distress - Head Head exam: Present: atraumatic, normocephalic - Eye Eye exam: Present: normal appearance - ENT ENT exam: Present: mucous membranes moist - Neck Neck exam: Present: normal inspection - Respiratory Respiratory exam: Present: normal lung sounds bilaterally. Absent: respiratory distress - Cardiovascular Cardiovascular Exam: Present: regular rate, normal rhythm. Absent: systolic murmur, diastolic murmur, rubs, gallop - GI/Abdominal GI/Abdominal exam: Present: soft, normal bowel sounds - Extremities Exam Extremities exam: Present: normal inspection, tenderness, normal capillary refill, joint swelling, other (Pain to the knee along the medial border with palpation. There is some increased valgus. Normal varus) - Back Exam Back exam: Present: normal inspection. Absent: CVA tenderness (R), CVA tenderness (L), paraspinal tenderness, vertebral tenderness - Neurological Exam Neurological exam: Present: alert, oriented X3 - Psychiatric Psychiatric exam: Present: normal affect, normal mood - Skin Skin exam: Present: warm, dry, intact, normal color. Absent: rash ED Course Vital Signs 04/03/21 02:40 Temperature 98.5 F Pulse Rate 82 Respiratory 16 Rate Blood Pressure 127/77 O2 Sat by Pulse 98 Oximetry ED Lower Extremity MDM - Medical Decision Making 35-year-old now found to be female presents with mechanical fall to the knee able to bear weight. Appears to have some increased pain to the medial aspect with possible medial ligamentous strain/sprain or meniscal injury. Plan is to have her follow-up with orthopedic for definitive treatment Critical care attestation.: If time is entered above; I have spent that time in minutes in the direct care of this critically ill patient, excluding procedure time. ED Disposition Clinical Impression: Knee internal derangement Disposition: HOME / SELF CARE / HOMELESS Is pt being admited?: No Does the pt Need Aspirin: No Condition: Stable Instructions: Acute Knee Pain, Adult, Medial Collateral Knee Ligament Sprain, Knee Sprain, Adult, [id number], Meniscus Tear, Knee Injection, Crutch Use, Adult Additional Instructions: You evaluate emergency department today for your knee pain. Your evaluation is knee did not show any signs of any acute injuries resulting in any instability at this time. Knee replacement knee immobilizer been provided for crutches. Please be sure to follow-up with orthopedic for definitive treatment of this issue. Use ice and Tylenol as needed for your pain as you which does limit the analgesics with your approval to take. Return to emergency department if you experience any worsening uncontrolled pain, numbness, tingling, weakness to your legs, trouble walking worsening swelling or redness or any other concerning symptoms. Referrals: ELIZABETH MINAYA MD [Staff Physician] - 3-5 Days
== END 2021-04-03 04:49 | disposition home or self-care (01) ==
LOC: ED 02:18
DX: M23.91 Unspecified internal derangement of right knee (principal)
CPT/HCPCS: 81025; 99283

== ENCOUNTER 2021-04-30 07:45 | Emergency (ER) | payer SELFPAY ==
--- NOTE | 2021-04-30 08:10 | Emergency Department Report ---
ED HPI - General Stated complaint: ABD PAIN/CRAMPS/9WKS Time Seen by Provider: 04/30/21 08:05 - History of Present Illness Initial comments: The patient was evaluated in the emergency department for symptoms described in the history of present illness. He/she was evaluated in the context of the global COVID-19 pandemic, which necessitated consideration that the patient might be at risk for infection with the virus that causes COVID-19. Institutional protocols and algorithms that pertain to the evaluation of patients at risk for COVID-19 are in a state of rapid change based on information released by regulatory bodies including the CDC and federal and state organizations. These policies and algorithms were followed during the patient's care in the emergency department. Please note that these policies, procedures and recommendations changed on a rapid basis. 35-year-old morbid obese -[place] female who reports she is about 9 weeks presents to the emergency room stating she is having cramping this morning. Patient denies any vaginal bleeding no vaginal discharge. Her last menstrual period was February 20, 2021. She is 4 para 2 with 1 miscarriage. She has not started care but [facility] She is delivered her last 2 pregnancies through . She denies any complications. She reports no past medical history, currently takes no meds and has no known drug allergies. Patient states she does not smoke cigarettes does not smoke marijuana does not drink alcohol. MD Complaint: abdominal pain -: This morning Location: pelvis Radiation: none Severity: moderate Quality: cramping Consistency: intermittent Improves with: none Worsens with: none Associated symptoms: denies: vaginal bleeding, vaginal discharge, dysuria Vaginal bleeding: none :: Yes Number of weeks : 9 OB History - Current : no complications OB History - Previous Pregnancies: no complications Last menstrual period: 02/20/21 Pre- care: none - Related Data : 4 Para: 2 Ab: 1 Previous Rx's Medication Instructions Recorded Last Taken Type Hyoscyamine Subl [Levsin Sl] 0.125 mg SL Q4HR PRN #7 tablet 06/20/14 Unknown Rx Promethazine [Phenergan] 25 mg PO Q6H PRN #10 tablet 06/20/14 Unknown Rx Ibuprofen [Motrin 800 MG tab] 800 mg PO Q8HR PRN #90 tablet 05/02/15 Unknown Rx oxyCODONE /ACETAMINOPHEN [Percocet 1 tab PO Q6HR PRN #30 tablet 05/02/15 Unknown Rx 5/325 mg] Naproxen 500 mg PO Q12H PRN #30 tablet 08/01/19 Unknown Rx predniSONE [Deltasone] 40 mg PO QDAY #12 tab 08/01/19 Unknown Rx tiZANidine [Zanaflex 4mg TAB] 4 mg PO Q8H PRN #21 tablet 08/01/19 Unknown Rx traMADoL [Ultram] 50 mg PO Q6HR PRN #10 tablet 08/01/19 Unknown Rx Ketorolac [Toradol] 10 mg PO Q8H PRN #10 tablet 04/14/20 Unknown Rx Famotidine [Pepcid] 20 mg PO BID #20 tablet 07/23/20 Unknown Rx Nitrofurantoin Dickinson/M-Cryst 100 mg PO Q12HR #10 capsule 07/23/20 Unknown Rx [Macrobid CAP] Ondansetron [Zofran Odt] 4 mg PO Q8HR PRN #14 tab.rapdis 07/23/20 Unknown Rx traMADoL [Ultram 50 MG tab] 50 mg PO Q6HR PRN #12 tablet 07/23/20 Unknown Rx Nitrofurantoin Dickinson/M-Cryst 100 mg PO Q12HR #14 capsule 10/08/20 Unknown Rx [Macrobid CAP] Dicyclomine [Bentyl] 20 mg PO QID PRN #30 tablet 01/11/21 Unknown Rx Famotidine [Pepcid] 20 mg PO BID 10 Days #20 tablet 01/11/21 Unknown Rx Nitrofurantoin Dickinson/M-Cryst 100 mg PO Q12HR 5 Days #10 capsule 01/11/21 Unknown Rx [Macrobid CAP] Sucralfate [Carafate] 1 gm PO QID 10 Days #40 tablet 01/11/21 Unknown Rx Azithromycin [Zithromax TAB] 1,000 mg PO QDAY 1 Days #2 tablet 04/30/21 Unknown Rx Nitrofurantoin Dickinson/M-Cryst 100 mg PO Q12HR 7 Days #14 capsule 04/30/21 Unknown Rx [Macrobid CAP] Allergies Allergy/AdvReac Type Severity Reaction Status Date / Time No Known Allergies Allergy Verified 04/03/21 02:39 ED Review of Systems ROS: Stated complaint: ABD PAIN/CRAMPS/9WKS Other details as noted in HPI Comment: All other systems reviewed and negative ED Past Medical Hx - Past Medical History Hx Hypertension: No Hx Congestive Heart Failure: No Hx Diabetes: No Hx Deep Vein Thrombosis: No Hx Renal Disease: No Hx Sickle Cell Disease: No Hx Seizures: No Hx Asthma: No Hx COPD: No Hx HIV: No Additional medical history: MORBID OBESITY - Surgical History Additional Surgical History: denies - Social History Smoking Status: Never Smoker Substance Use Type: None - Medications Home Medications: Home Medications Medication Instructions Recorded Confirmed Last Taken Type Hyoscyamine Subl [Levsin Sl] 0.125 mg SL Q4HR PRN #7 tablet 06/20/14 05/05/15 Unknown Rx Promethazine [Phenergan] 25 mg PO Q6H PRN #10 tablet 06/20/14 05/05/15 Unknown Rx Ibuprofen [Motrin 800 MG tab] 800 mg PO Q8HR PRN #90 tablet 05/02/15 Unknown Rx oxyCODONE /ACETAMINOPHEN [Percocet 1 tab PO Q6HR PRN #30 tablet 05/02/15 Unknown Rx 5/325 mg] Naproxen 500 mg PO Q12H PRN #30 tablet 08/01/19 Unknown Rx predniSONE [Deltasone] 40 mg PO QDAY #12 tab 08/01/19 Unknown Rx tiZANidine [Zanaflex 4mg TAB] 4 mg PO Q8H PRN #21 tablet 08/01/19 Unknown Rx traMADoL [Ultram] 50 mg PO Q6HR PRN #10 tablet 08/01/19 Unknown Rx Ketorolac [Toradol] 10 mg PO Q8H PRN #10 tablet 04/14/20 Unknown Rx Famotidine [Pepcid] 20 mg PO BID #20 tablet 07/23/20 Unknown Rx Nitrofurantoin Dickinson/M-Cryst 100 mg PO Q12HR #10 capsule 07/23/20 Unknown Rx [Macrobid CAP] Ondansetron [Zofran Odt] 4 mg PO Q8HR PRN #14 tab.rapdis 07/23/20 Unknown Rx traMADoL [Ultram 50 MG tab] 50 mg PO Q6HR PRN #12 tablet 07/23/20 Unknown Rx Nitrofurantoin Dickinson/M-Cryst 100 mg PO Q12HR #14 capsule 10/08/20 Unknown Rx [Macrobid CAP] Dicyclomine [Bentyl] 20 mg PO QID PRN #30 tablet 01/11/21 Unknown Rx Famotidine [Pepcid] 20 mg PO BID 10 Days #20 tablet 01/11/21 Unknown Rx Nitrofurantoin Dickinson/M-Cryst 100 mg PO Q12HR 5 Days #10 capsule 01/11/21 Unknown Rx [Macrobid CAP] Sucralfate [Carafate] 1 gm PO QID 10 Days #40 tablet 01/11/21 Unknown Rx Azithromycin [Zithromax TAB] 1,000 mg PO QDAY 1 Days #2 tablet 04/30/21 Unknown Rx Nitrofurantoin Dickinson/M-Cryst 100 mg PO Q12HR 7 Days #14 capsule 04/30/21 Unknown Rx [Macrobid CAP] ED Physical Exam - General General appearance: alert, in no apparent distress - Head Head exam: Present: atraumatic, normocephalic - Eye Eye exam: Present: normal appearance - ENT ENT exam: Present: mucous membranes moist - Neck Neck exam: Present: normal inspection - Respiratory Respiratory exam: Present: normal lung sounds bilaterally. Absent: respiratory distress - Cardiovascular Cardiovascular Exam: Present: regular rate, normal rhythm. Absent: systolic murmur, diastolic murmur, rubs, gallop - GI/Abdominal GI/Abdominal exam: Present: soft, normal bowel sounds - Extremities Exam Extremities exam: Present: normal inspection - Back Exam Back exam: Present: normal inspection - Neurological Exam Neurological exam: Present: alert, oriented X3 - Psychiatric Psychiatric exam: Present: normal affect, normal mood - Skin Skin exam: Present: warm, dry, intact, normal color. Absent: rash ED Course Vital Signs 04/30/21 04/30/21 07:58 09:30 Temperature 98.4 F 98.3 F Pulse Rate 86 74 Respiratory 18 18 Rate Blood Pressure 120/76 Blood Pressure 120/69 [Left] O2 Sat by Pulse 97 100 Oximetry ED Medical Decision Making - Lab Data Result diagrams: 04/30/21 09:45 04/30/21 09:45 - Medical Decision Making 35-year-old morbid obese -[place] female who reports she is about 9 weeks presents to the emergency room stating she is having cramping this morning. Patient denies any vaginal bleeding no vaginal discharge. Her last menstrual period was February 20, 2021. She is 4 para 2 with 1 misc arriage. She has not started care but plans [facility]. She is delivered her last 2 pregnancies through . She denies any complications. She reports no past medical history, currently takes no meds and has no known drug allergies. Patient states she does not smoke cigarettes does not smoke marijuana does not drink alcohol. CBC CMP serum hCG urinalysis ED RhoGam ultrasound and ultrasound transvaginal has been ordered. Patient just informed me that her boyfriend who she is having sex relationships with has penile discharge and concern for STD. Patient will be treated with Rocephin 1 g IM. She will also be sent home with prescription with a azithromycin. She is instructed to follow-up at the health department or [facility] for full STD evaluation. At this time I am still waiting for blood work. Critical care attestation.: If time is entered above; I have spent that time in minutes in the direct care of this critically ill patient, excluding procedure time. ED Disposition Clinical Impression: UTI (urinary tract infection), Concern about STD in female without diagnosis Disposition: HOME / SELF CARE / HOMELESS Is pt being admited?: No Does the pt Need Aspirin: No Condition: Stable Instructions: Urinary Tract Infection, Adult, [id number] Additional Instructions: Complete antibiotics as prescribed. Ultrasound shows to approximately 10 weeks . Urinalysis concern for urinary tract infection versus STD exposure. I recommend complete the medication. Follow-up with [facility] in the next 3 to 5 days. Refrain from intercourse until you have been tested and your partner has been tested completely and treated. Prescriptions: Nitrofurantoin Dickinson/M-Cryst [Macrobid CAP] 100 mg PO Q12HR 7 Days #14 capsule Azithromycin [Zithromax TAB] 1,000 mg PO QDAY 1 Days #2 tablet Referrals: PRIMARY CARE, [Primary Care Provider] - 3-5 Days [facility] [Provider Group] - 3-5 Days [facility] [Outside] - 3-5 Days Forms: Work/School Release Form(ED) Time of Disposition: 12:02
--- NOTE | 2021-04-30 09:16 | Ultrasound Report ---
FIRSTTRIMESTER OBSTETRIC ULTRASOUND HISTORY: Pelvic pain, cramping. 9 weeks with cramping. COMPARISON: None. TECHNIQUE: Routine transabdominal OB ultrasound performed. FINDINGS: Uterus: Mildly enlarged measuring 15 x 6 x 7 cm. Gestational Sac: Well-defined oval shape and intrauterine in location. Yolk Sac: Normal in appearance. Fetus/Embryo: [place]-rump length of 3.14 cm, corresponding to an estimated gestational age of 10 weeks 0 days. Embryonic/ anatomy is too small for evaluation. Embryonic/ cardiac activity: 159bpm Placenta: Too small for evaluation. Amniotic fluid volume: Subjectively appropriate for gestational age. Ovaries: The right ovary is normal in size and appearance with normal blood flow, measuring 3.9 x 2. 4 x 3.1 cm. The left ovary is normal in size and appearance with normal blood flow, measuring 2.4 x 2.3 x 1.8 cm. Hypoechoic space-occupying mass in the right ovary with peripheral vascularity is most likely the corpus luteum. Additional findings: None. IMPRESSION Early live intrauterine . No acute abnormality is noted. Signer Name: Eh Stinson Jr, MD Signed: 04/30/2021 9:11 AM Workstation Name: [id number]
[2021-04-30 09:47] LABS: Bacteria,Urine 1+ /HPF (Negative); Bilirubin,Urine NEG (Negative); Blood,Urine SM (Negative); Color,Urine Yellow (Yellow); Mucus,Urine 3+ /HPF
[2021-04-30] MEDS ORDERED: LIDOCAINE-MPF (1%) 10 MG/1 ML VIAL 5 ML INFILTRATI ONE (10:20)
[2021-04-30 10:43] LABS: Alanine Aminotransferase 8 units/L (7-56); Albumin 3.6 g/dL (3.9-5); Blood Urea Nitrogen 10 mg/dL (7-17); Hemolysis Index 81
[2021-04-30 10:50] LABS: BUN/Creatinine Ratio 20
[2021-04-30 10:54] LABS: Basophils % (Auto) 0.3 % (0.0-1.8); Eosinophils % (Auto) 0.4 % (0.0-4.3); Hematocrit 34.7 % (30.3-42.9); Hemoglobin 11.1 gm/dl (10.1-14.3); Lymphocytes % (Auto) 8.8 % (13.4-35.0); Mean Corpuscular HGB Conc 32 % (30-34); Mean Corpuscular Volume 90 fl (79-97); Monocytes # (Auto) 0.6 K/mm3 (0.0-0.8); Platelet Count 381 K/mm3 (140-440); Red Blood Count 3.85 M/mm3 (3.65-5.03); Red Cell Distribution Width 16.2 % (13.2-15.2)
[2021-04-30 12:16] VITALS: BP 123/69
== END 2021-04-30 12:18 | disposition home or self-care (01) ==
LOC: ED 07:45
DX: O23.41 Unspecified infection of urinary tract in pregnancy, first trimester (principal); N39.0 Urinary tract infection, site not specified; Z3A.09 9 weeks gestation of pregnancy
CPT/HCPCS: 36415; 76801; 80053; 81001; 84702; 85025; 86900; 86901; 87086; 96372; 99284; J0696

== ENCOUNTER 2021-11-07 11:35 | Outpatient (CLI) | payer MEDICAID ==
[2021-11-07 13:25] LABS: Hematocrit 32.1 % (30.3-42.9); Hemoglobin 10.8 gm/dl (10.1-14.3); Mean Corpuscular HGB Conc 34 % (30-34); Mean Corpuscular Volume 88 fl (79-97); Platelet Count 266 K/mm3 (140-440); Red Blood Count 3.66 M/mm3 (3.65-5.03); Red Cell Distribution Width 17.5 % (13.2-15.2)
[2021-11-07 13:47] LABS: Bilirubin,Urine NEG (Negative); Blood,Urine SM (Negative); Color,Urine Yellow (Yellow); Mucus,Urine 3+ /HPF; Protein,Urine <15 mg/dL mg/dL (Negative); Urobilinogen,Urine < 2.0 mg/dL (<2.0)
[2021-11-07 13:47] LABS: Alanine Aminotransferase 12 units/L (7-56); Uric Acid 3.8 mg/dL (3.5-7.6)
[2021-11-07 14:31] VITALS: BP 112/59
== END 2021-11-07 14:55 | disposition home or self-care (01) ==
LOC: TRG 11:35 → APU 11:36 → TRG 14:55
PROVIDERS: ATTEND Obstetrics & Gynecology
DX: O13.3 Gestational [pregnancy-induced] hypertension without significant proteinuria, third trimester (principal); Z3A.37 37 weeks gestation of pregnancy
CPT/HCPCS: 36415; 81001; 82565; 83615; 84450; 84460; 84550; 85027; 87086

== ENCOUNTER 2021-11-21 11:30 | Inpatient (IN) | payer MEDICAID ==
[2021-11-21 09:43] LABS: Hematocrit 32.4 % (30.3-42.9); Hemoglobin 11.2 gm/dl (10.1-14.3); Mean Corpuscular HGB Conc 35 % (30-34); Mean Corpuscular Volume 88 fl (79-97); Platelet Count 301 K/mm3 (140-440); Red Blood Count 3.69 M/mm3 (3.65-5.03); Red Cell Distribution Width 17.2 % (13.2-15.2)
[2021-11-23] MEDS ORDERED: BICITRA ORAL LIQD 30ML PO ONE (10:19)
[2021-11-23] MEDS ORDERED: METOCLOPRAMIDE 10 MG/2 ML INJ IV ONE (10:19)
[2021-11-23] MEDS ORDERED: FAMOTIDINE 20 MG/2 ML INJ IV ONE (10:19)
--- NOTE | 2021-11-23 10:24 | History and Physical Report ---
History of Present Illness Date of examination: 11/23/21 Date of admission: 11/23/21 08:53 Chief complaint: scheduled repeat c/section History of present illness: at 39.3wks by LMP c/w U/S. care at [facility]. Pt here for scheduled repeat section and bilateral tubal ligation via salpingectomy and consents already signed and pt also already had preop done here at [facility]. Pt admits to movement, denies LOF or VB or feeling ctx. Pt has been taking aspirin med daily which she stopped 1wk ago. Pt denies headache. labs with O+, neg screen, rubella immune, urine culture neg, Hep BsAg neg, HIV neg, GC/Chlam neg and trich neg. Normal 1hrgtt at 118. GBS positive Past History Past Medical History: other (morbid obesity, ) Past Surgical History: section (x2) Social history: no significant social history - Obstetrical History Expected Date of Delivery: 11/27/21 Actual Gestation: 39 Week(s) 3 Day(s) : 4 Hx # Term Pregnancies: 2 Induced : 1 Number of Living Children: 2 Medications and Allergies Allergies Allergy/AdvReac Type Severity Reaction Status Date / Time No Known Allergies Allergy Verified 11/16/21 16:17 Home Medications Medication Instructions Recorded Confirmed Last Taken Type Ergocalciferol [Vitamin D2] 1 cap PO QWEEK 11/16/21 11/16/21 Unknown History Ferrous Sulfate [Feosol] 325 mg PO QDAY 11/16/21 11/16/21 Unknown History labetaloL [Labetalol 100mg TAB] 100 mg PO BID 11/21/21 11/21/21 Unknown History Active Meds: Active Medications Citric Acid/Sodium Citrate (Bicitra Oral Liqd 30ml) 30 ml PO ONCE ONE Stop: 11/23/21 10:20 Famotidine (Famotidine 20 Mg/2 Ml Inj) 20 mg IV ONCE ONE Stop: 11/23/21 10:20 Lactated Ringer's (Lactated Ringers) 1,000 mls @ 2,250 mls/hr IV PREOP SAPNA Stop: 11/24/21 10:57 Oxytocin/Sodium Chloride (Pitocin/Ns 30 Unit/500ml) 30 units in 500 mls @ 0 mls/hr IV TITR SAPNA; Protocol Cefazolin Sodium (Ancef/Sterile Water 2 Gm/20 Ml) 2 gm in 20 mls @ 80 mls/hr IV PREOP NR; Protocol Metoclopramide HCl (Metoclopramide 10 Mg/2 Ml Inj) 10 mg IV ONCE ONE Stop: 11/23/21 10:20 Review of Systems All systems: negative (no complaints) - Vital Signs Vital signs: Vital Signs Temp Pulse Resp BP Pulse Ox 98 F 78 16 145/83 97 11/21/21 09:25 11/21/21 09:25 11/21/21 09:25 11/21/21 09:25 11/21/21 09:25 Temp Pulse Resp BP Pulse Ox 98.2 F 83 20 127/77 98 11/23/21 09:54 11/23/21 10:21 11/23/21 09:54 11/23/21 09:54 11/23/21 10:21 - Physical Exam Breasts: Positive: deferred Cardiovascular: Regular rate Lungs: Positive: Normal air movement Abdomen: Positive: soft Genitourinary (Female): Positive: normal external genitalia Uterus: Positive: enlarged (non-tender, gravid) - Obstetrical FHR: category 1 Uterine Contraction Monitor Mode: External Uterine Contraction Pattern: Absent Results Result Diagrams: 11/21/21 Unknown All other labs normal. Assessment and Plan term IUP at 39.3wks, morbid obesity, previous c/section x2, here for repeat c/section and permanent sterilization via salpingectomy 1. Admit to labor and delivery for the above procedures that are currently signed and tubal consents valid 2. Anesthesia and NICU notified 3. All questions encouraged and answered
[2021-11-23] MEDS: LACTATED RINGERS 1,000 ML IV SCH ×4 (10:57→23:04)
[2021-11-23] MEDS ORDERED: OXYTOCIN DRIP 30 UNITS/500 ML BAG IV SCH ×2 (11:00→16:00)
[2021-11-23] MEDS ORDERED: ceFAZolin/Water 2 GM/20 ML 2 GM/20 ML SYRINGE IV NR (11:00)
[2021-11-23] MEDS ORDERED: dexAMETHasone 20 MG/5 ML VIAL ONE (11:08)
[2021-11-23] MEDS ORDERED: ONDANSETRON 4 MG/2 ML INJ ONE (11:08)
[2021-11-23] MEDS ORDERED: fentaNYL 100 MCG/2 ML INJ ONE (11:08)
[2021-11-23] MEDS ORDERED: BUPIVACAINE/PF (0.5%) 5 MG/1 ML 30 ML VIAL INFILTRATI ONE (11:08)
[2021-11-23] MEDS ORDERED: KETOROLAC 30 MG/1 ML INJ ONE (11:08)
[2021-11-23] MEDS ORDERED: BUPIVACAINE/PF (0.25%) 2.5 MG/ML 30 ML VIAL INFILTRATI ONE (11:08)
--- NOTE | 2021-11-23 11:21 | Anesthesia Consultation ---
Anesthesia Consult and Med Hx - Airway Anesthetic Teeth Evaluation: Good ROM Head & Neck: Adequate Mental/Hyoid Distance: Adequate Mallampati Class: Class II Intubation Access Assessment: Probably Good - Pulmonary Exam CTA: Yes - Cardiac Exam Cardiac Exam: RRR - Pre-Operative Health Status ASA Pre-Surgery Classification: ASA2 Proposed Anesthetic Plan: Spinal - Pulmonary Hx Smoking: No Hx Asthma: No COPD: No Hx Pneumonia: No - Cardiovascular System Hx Hypertension: Yes (Gestational) - Central Nervous System Hx Seizures: No Hx Psychiatric Problems: No - Endocrine Hx Renal Disease: No Hx End Stage Renal Disease: No Hx Hypothyroidism: No Hx Hyperthyroidism: No - Hematic Hx Anemia: Yes Hx Sickle Cell Disease: No - Other Systems Hx Alcohol Use: No Hx Cancer: No Hx Obesity: Yes (morbid)
[2021-11-23] MEDS ORDERED: PROMETHAZINE 25 MG TAB PO PRN (11:30)
[2021-11-23] MEDS ORDERED: NalbUPHINE 10 MG/1 ML INJ IV PRN (11:30)
[2021-11-23] MEDS ORDERED: PROMETHAZINE 25 MG RECT SUPP PR PRN ×2 (11:30→15:57)
[2021-11-23] MEDS ORDERED: HYDROmorphone 1 MG/1 ML INJ IV PRN ×2 (11:30)
[2021-11-23] MEDS ORDERED: NALOXONE 0.4 MG/1 ML INJ IV PRN ×2 (11:30→15:57)
[2021-11-23] MEDS ORDERED: diphenhydrAMINE 50 MG/ML VIAL IV PRN (11:30)
[2021-11-23] MEDS ORDERED: PHENYLEPHRINE/NS 1,000 MCG/10 ML SYRINGE (OR USE) IV ONE (11:40)
[2021-11-23] MEDS ORDERED: ePHEDrine SULFATE 50 MG/1 ML INJ ONE ×2 (11:41→12:00)
[2021-11-23] MEDS ORDERED: ceFAZolin/STERILE WATER 2 GM/20 ML SYRINGE IV ONE (11:52)
[2021-11-23] MEDS ORDERED: SODIUM CHLORIDE 0.9% IRR 1,500 ML BOTTLE IR ONE (11:52)
[2021-11-23] MEDS ORDERED: WATER FOR IRRIG STERILE 1,500 ML BOTTLE IR ONE (11:52)
[2021-11-23] MEDS ORDERED: AMPICILLIN/NS 2 GM/100 ML 2 GM/100 ML BAG IV ONE (12:04)
--- NOTE | 2021-11-23 14:13 | Progress Note ---
Spinal Anesthesia Block - Spinal Anesthesia Block Start Time: 11:35 Stop Time: 11:40 Performed by:: GERARD LOCKE Procedure: L 34 space ID'd prep and drape nsf, local to skin, introducer and 24 g needle from kit. Clear csf, neg heme, carter well
--- NOTE | 2021-11-23 14:15 | Progress Note ---
Regional Anesthesia Block - Regional Anesthesia Block Start Time: 13:50 Stop Time: 14:00 Performed By:: GERARD LOCKE Procedure: TAP block, see OR record. Jh
--- NOTE | 2021-11-23 15:03 | Procedure Note ---
OB Delivery Note - Delivery Date of Delivery: 11/23/21 Surgeon: SAVANNA WANG Estimated blood loss: other (835cc per QBL) - Section Preop diagnosis: repeat (with previous c/s x2), desires sterilization, other (morbid obesity) Postop diagnosis: same section procedure: repeat low transverse, bilateral tubal ligation (via salpingectomy), other (lysis of extensive adhesions) Disposition: floor Complications: none Narrative: Date: 11/23/21 Surgeon: Savanna Wang MD Preop Dx: IUP at 39.3wks, previous c/s x2; morbid obesity; desires permanent sterlization Postop Dx: same Procedure : repeat low transverse section, lysis of adhesions and bilateral salpingectomy for sterilization Anesthesia: Spinal Intake: 2700cc Output: 75cc concentrated urine EBL: 835cc by QBL After the risks, benefits and alternatives of procedure discussed, patient signed consents and was taken to the operating room. Pt was given spinal anesthesia. After same was adequate, patient was prepped and draped in the usual sterile fashion. Rocha catheter in place and draining small amount of concentrated urine. Pt was given prophylactic antibiotic per protocol and time out was done Pfannenstiel skin incision was made thru previous scar and taken sharply to the fascia and the incision extended using electrocautery. Superior edge of the fascia was grasped with tamika clamps and the rectus muscle using blunt dissection and also using electrocautery. Muscle thin on the right and inferior epigastric vessel with bleeding and hemostatic with figure of 8 sutures x2. Lower portion of the fascia using electrocautery. Rectus muscle in the midline and Peritoneal cavity entered sharply, lysis of anterior wall adhesions sharply and then extended with good visualization of the bladder. Joshua retractor placed without difficulty. The bladder flap was created sharpl y using metzenbaum scissors. Lower uterine segment then entered transversely and amniotic sac entered using allys clamps with thick meconium stained fluid. Uterine incision extended using bandage scissors. delivered, bulb suctioned, cord clamped and baby handed to waiting pediatricians. Placenta then delivered completely and uterine cavity cleared of all clots and debri. The uterus was not exteriorized and closed in 2 layers using 0-vicryl suture in a running locked fashion and then an additional layer of imbrication suture. Surgicel powder placed along the uterine incision. Excellent hemostasis noted. The gutters were cleared of clots and debri. Attention turned to the right adnexa, then lysis of omental adhesions and the tube was then identified and followed out to it's fimbirated end and the avascular portion of the mesosalpinx entered and distal tubal segment excised and free ends remaining doubly ligated with 0-vicryl suture. In a similar manner the left tube was identified easily without adhesions and same removed and remaining free ends doubly ligated. Excellent hemostasis remains. The anterior peritoneum closed inferiorly only with the scar tissue just above the bladder peritoneum. Upper portion of rectus muscle with wide separation and unable to reapproximate centrally. The Rectus fascia closed with 0-vicryl suture in a continuous fashion and subcutaneous tissue copiously irrigated with normal saline and re-approximated using 3-0 vicryl suture continuously. Excellent hemostasis remains. The skin was closed with 4-0 monocryl suture subcutaneously and dermabond placed to left side of incision and steristrips placed for the remainder of the incision and pressure dressing applied. Sponge, lap, instrument and needle counts x2 were normal. Patient tolerated the procedure well and was taken to recovery room stable. Findings: Viable male , APGARS 8/9 and weight 3660g. Normal uterus adherent to anterior abdominal wall and right tube enclosed with omental adhesions however appears normal with lysis of adhesions; normal left tube and normal ovaries bilaterally - Infant A at 1 minute: 8 at 5 minutes: 9 Infant Gender: Male (wt 3660g; thick meconium stained fluid)
[2021-11-23] MEDS ORDERED: WITCH HAZEL/ GLYCERIN PAD TP PRN (15:57)
[2021-11-23] MEDS ORDERED: HYDROCORTISONE 25 MG RECTAL SUPP PR PRN (15:57)
[2021-11-23] MEDS ORDERED: ACETAMINOPHEN 325 MG TAB PO PRN (15:57)
[2021-11-23] MEDS ORDERED: SENNOSIDES 8.6 MG TAB PO PRN (15:57)
[2021-11-23] MEDS ORDERED: LANOLIN/ZINC/DIMETHICONE (LANSINOH) 7 GM TP PRN (15:57)
[2021-11-23] MEDS ORDERED: ONDANSETRON 4 MG/2 ML INJ IV PRN (15:57)
[2021-11-23] MEDS ORDERED: MORPHINE 4 MG/1 ML INJ IV PRN (15:57)
[2021-11-23] MEDS ORDERED: IBUPROFEN 600 MG TAB PO PRN (15:57)
[2021-11-23] MEDS ORDERED: SIMETHICONE 80 MG CHEW TAB PO PRN (15:57)
[2021-11-23 17:17] LABS: Hemoglobin 10.7 gm/dl (10.1-14.3); Mean Corpuscular HGB Conc 32 % (30-34); Mean Corpuscular Volume 91 fl (79-97); Platelet Count 287 K/mm3 (140-440); Red Blood Count 3.73 M/mm3 (3.65-5.03); Red Cell Distribution Width 17.1 % (13.2-15.2)
[2021-11-23 18:32] LABS: Total Cells Counted 100
[2021-11-23 18:33] LABS: Anisocytosis 1+; Basophils % (Manual) 0 % (0.0-1.8); Eosinophils % (Manual) 0 % (0.0-4.3); Hypochromasia 1+; Large Platelets Few; Monocytes % (Manual) 0 % (0.0-7.3); Myelocytes # (Manual) 0.2 K/mm3; Platelet Estimate Cons
[2021-11-23] MEDS: oxyCODONE /ACETAMINOPHEN 5-325MG TAB PO PRN (23:03)
[2021-11-24 04:24] LABS: Basophils # (Auto) 0.1 K/mm3 (0.0-0.1); Basophils % (Auto) 0.4 % (0.0-1.8); Hematocrit 25.8 % (30.3-42.9); Hemoglobin 8.4 gm/dl (10.1-14.3); Lymphocytes # (Auto) 1.6 K/mm3 (1.2-5.4); Mean Corpuscular HGB Conc 33 % (30-34); Mean Corpuscular Volume 90 fl (79-97); Monocytes # (Auto) 0.9 K/mm3 (0.0-0.8); Monocytes % (Auto) 6.3 % (0.0-7.3); Platelet Count 260 K/mm3 (140-440); Red Blood Count 2.87 M/mm3 (3.65-5.03)
[2021-11-24] MEDS: oxyCODONE /ACETAMINOPHEN 5-325MG TAB PO PRN (06:28)
[2021-11-24] MEDS: MAGNESIUM HYDROXIDE (MOM) ORAL LIQD UDC PO PRN ×2 (09:42→21:34)
--- NOTE | 2021-11-24 16:34 | Post Anesthesia Evaluation ---
- Post Anesthesia Evaluation Patient Participated: Yes Airway Patent: Yes Stable Respiratory Function: Yes Nausea/Vomiting: No Temp > 96.8F: Yes Pain Manageable: Yes Adequeate Hydration: Yes Anesthesia Complications: No Block Receding Appropriately: Yes Patient on Ventilator: No
[2021-11-24] MEDS: FERROUS SULFATE 325 MG TAB PO SCH (16:46)
[2021-11-24] MEDS: PRENATAL VIT27-FE FUMARATE-FOLIC ACID VIT TAB PO SCH (16:47)
--- NOTE | 2021-11-24 19:14 | Progress Note ---
Assessment and Plan POD#1 C/S with asymptomatic anemia, walking the hallways, still without flatus, adequate pain control 1. Will continue simethecone, add MOM 60cc and if no BM tomorrow and bowel sound still present, then give dulcolax suppos 2. Routine post op care and remove dressing tomorrow Subjective Date of service: 11/24/21 Principal diagnosis: POD#1 repeat C/S Interval history: pt while walking in the hallway state that she has not passed flatus but she can feel it. Pain controlled with meds. pt has tolerated the diet received. Vag bleed less than a period. denies N/V/F/C Objective - Constitutional Vitals: Vital Signs - 12hr 11/24/21 11/24/21 11/24/21 07:56 08:00 12:20 Temperature 98.1 F 98.1 F Pulse Rate 68 69 Respiratory 20 20 Rate Blood Pressure 129/71 130/78 O2 Sat by Pulse 99 97 Oximetry O2 Sat by Pulse 98 Oximetry [ Anterior Bilateral Throughout] 11/24/21 16:26 Temperature 97.8 F Pulse Rate 79 Respiratory 20 Rate Blood Pressure 145/77 O2 Sat by Pulse 99 Oximetry O2 Sat by Pulse Oximetry [ Anterior Bilateral Throughout] General appearance: Present: no acute distress - Neck Neck: normal ROM - Respiratory Respiratory effort: normal - Breasts Breasts: deferred - Cardiovascular Rhythm: regular Extremities: No edema - Gastrointestinal General gastrointestinal: Present: soft, non-tender, hypoactive bowel sounds, other (pt lower abd extends downwards due to obesity, however non-tender and pt dressing C/D/I) - Genitourinary Female genitourinary: other (lochia small, fundus firm 2cm below umbilicus and non-tender) - Integumentary Integumentary: warm, dry - Labs CBC & Chem 7: 11/24/21 03:53 Labs: Abnormal lab results 11/24/21 Range/Units 03:53 WBC 13.7 H (4.5-11.0) K/mm3 RBC 2.87 L (3.65-5.03) M/mm3 Hgb 8.4 L (10.1-14.3) gm/dl Hct 25.8 L D (30.3-42.9) % RDW 17.0 H (13.2-15.2) % Lymph % (Auto) 12.0 L (13.4-35.0) % [place] # (Auto) 0.9 H (0.0-0.8) K/mm3 Seg Neutrophils % 81.3 H (40.0-70.0) % Seg Neutrophils # 11.1 H (1.8-7.7) K/mm3 Medications & Allergies - Medications Allergies/Adverse Reactions: Allergies No Known Allergies Allergy (Verified 11/16/21 16:17) Home Medications: Home Medications Medication Instructions Recorded Confirmed Last Taken Type Ergocalciferol [Vitamin D2] 1 cap PO QWEEK 11/16/21 11/16/21 Unknown History Ferrous Sulfate [Feosol] 325 mg PO QDAY 11/16/21 11/16/21 Unknown History labetaloL [Labetalol 100mg TAB] 100 mg PO BID 11/21/21 11/21/21 Unknown History Ibuprofen [Motrin] 800 mg PO Q8HR PRN 21 Days #40 11/23/21 Unknown Rx tablet oxyCODONE /ACETAMINOPHEN [Percocet 1 tab PO Q4HR PRN 21 Days #30 tab 11/23/21 Unknown Rx 5/325] Active Medications: Generic Name Dose Route Start Last Admin Trade Name Freq PRN Reason Stop Dose Admin Acetaminophen 650 mg 11/23/21 15:57 Acetaminophen 325 Mg Tab PO Q4H PRN Fever >100.5/GUERRERO Diphenhydramine HCl 12.5 mg 11/23/21 11:30 Diphenhydramine 50 Mg/Ml Vial IV Q2H PRN Itching Ferrous Sulfate 325 mg 11/24/21 10:00 11/24/21 16:46 Ferrous Sulfate 325 Mg Tab PO Not Given QDAY SAPNA Hydrocortisone Acetate 25 mg 11/23/21 15:57 Hydrocortisone 25 Mg Rectal Supp MO BID PRN Hemorrhoids Oxytocin/Sodium Chloride 30 units in 500 mls @ 0 mls/hr 11/23/21 11:00 Pitocin/Ns 30 Unit/500ml IV TITR SAPNA Protocol As Directed Cefazolin Sodium 3 gm/ Sodium 100 mls @ 100 mls/30 min 11/23/21 18:00 Chloride IV 11/25/21 18:29 PREOP NR Protocol Lactated Ringer's 1,000 mls @ 150 mls/hr 11/23/21 16:00 11/23/21 23:04 Lactated Ringers IV 11/24/21 22:39 150 mls/hr DIRECT SAPNA Administration Oxytocin/Sodium Chloride 30 units in 500 mls @ 40 mls/hr 11/23/21 16:00 Pitocin/Ns 30 Unit/500ml IV TITR [facility] Protocol Ibuprofen 600 mg 11/23/21 15:57 11/24/21 16:41 Ibuprofen 600 Mg Tab PO 600 mg Q6H PRN Administration Pain, Mild (1-3) Ibuprofen 800 mg 11/23/21 15:57 Ibuprofen 800 Mg Tab PO Q6H PRN Pain, Moderate (4-6) Magnesium Hydroxide 30 ml 11/23/21 15:57 11/24/21 09:42 Magnesium Hydroxide (Mom) Oral Liqd Udc PO 30 ml QHS PRN Administration Constip Unrelieved By Senna Morphine Sulfate 4 mg 11/23/21 15:57 Morphine 4 Mg/1 Ml Inj IV Q4H PRN Pain , Severe (7-10) Multi-Ingredient Ointment 1 applic 11/23/21 15:57 Lanolin/Zinc/Dimethicone (Lansinoh) 7 Gm TP PRN PRN dryness/cracking Multivitamins/Iron/Calcium 1 each 11/24/21 10:00 11/24/21 16:47 [id number] Fumarate-Folic Acid Vit Tab PO Not Given QDAY [facility] Naloxone HCl 0.1 mg 11/23/21 15:57 Naloxone 0.4 Mg/1 Ml Inj IV Q2MIN PRN Res Rate </= 8 or 02 SAT < 92% Ondansetron HCl 4 mg 11/23/21 15:57 Ondansetron 4 Mg/2 Ml Inj IV Q8H PRN Nausea And Vomiting Oxycodone/Acetaminophen 2 tab 11/23/21 15:57 11/24/21 06:28 Oxycodone /Acetaminophen 5-325mg Tab PO 2 tab Q4H PRN Administration Pain, Moderate (4-6) Promethazine HCl 25 mg 11/23/21 11:30 Promethazine 25 Mg Tab PO Q6H PRN Nausea And Vomiting Promethazine HCl 25 mg 11/23/21 15:57 Promethazine 25 Mg Rect Supp MO Q6H PRN N/V IF NPO AND NO IV ACCESS Senna 17.2 mg 11/23/21 15:57 Sennosides 8.6 Mg Tab PO QHS PRN Constipation Simethicone 80 mg 11/23/21 15:57 11/24/21 09:41 Simethicone 80 Mg Chew Tab PO 80 mg Q6H PRN Administration Gas pain Sodium Chloride 10 ml 11/23/21 12:00 Sodium Chloride 0.9% 10 Ml Flush Syringe IV PRN PRN flush Sodium Chloride 10 ml 11/23/21 16:00 Sodium Chloride 0.9% 10 Ml Flush Syringe IV 12/04/21 23:59 PRN NR Witch Piage/Glycerin 1 each 11/23/21 15:57 Witch Paige/ Glycerin Pad TP PRN PRN Hemorrhoids/cleansing/soothing
[2021-11-25] MEDS: IBUPROFEN 800 MG TAB PO PRN ×3 (05:32→23:36)
--- NOTE | 2021-11-25 11:07 | Progress Note ---
Assessment and Plan A: /postop day 2 S/P repeat low transverse section with bilateral salpingectomy and lysis of adhesions. Anemia. Obesity. Heart murmur (asymptomatic). P: Continue oral iron supplementation. Repeat CBC tomorrow morning. Encouraged ambulation. Regular diet. Patient to see manager investigations as an outpatient within a week of discharge due to heart murmur (asymptomatic). Anticipate discharge home tomorrow if patient continues to do well and if CBC is stable. Subjective - Subjective Date of service: 11/25/21 Principal diagnosis: POD#2 repeat C/S with bilateral salpingectomy and lysis of adhesions Patient reports: appetite normal, voiding normally, pain well controlled, bowel movement, ambulating normally, no dizzy ambulation, no nauseated : doing well Objective - Vital Signs Latest vital signs: Vital Signs Temp Pulse Resp BP Pulse Ox Pulse Ox 11/25/21 08:07 98.0 F 83 18 134/55 97 11/25/21 07:24 98 11/25/21 05:32 98 11/25/21 04:25 98 11/25/21 01:35 98 11/25/21 00:48 98.1 F 74 18 143/75 100 11/24/21 23:20 98 11/24/21 21:30 98 11/24/21 19:45 98 11/24/21 16:26 97.8 F 79 20 145/77 99 11/24/21 12:20 98.1 F 69 20 130/78 97 Intake and Output 11/24/21 11/25/21 11/25/21 23:59 07:59 15:59 Intake Total 360 600 120 Balance 360 600 120 Intake: Oral 360 120 Intake, Free Water 600 Other: Total, Intake Amount 360 120 # Voids Void 1 2 1 # Bowel Movements 1 - Exam Cardiovascular: Present: Regular rate, Other (murmur heard) Lungs: Present: Clear to auscultation Abdomen: Present: normal appearance (obese), soft, normal bowel sounds. Absent: distention, tenderness, guarding, rigidity Uterus: Present: firm, fundal height below umbilicus (fundus firm and midline at 2 FB below umbilicus). Absent: bogginess, tenderness Extremities: Present: edema (bilateral pedal edema). Absent: tenderness Incision: Present: dry, intact
[2021-11-25] MEDS: FERROUS SULFATE 325 MG TAB PO SCH (15:03)
[2021-11-25] MEDS: PRENATAL VIT27-FE FUMARATE-FOLIC ACID VIT TAB PO SCH (15:03)
[2021-11-26 04:35] LABS: Basophils % (Auto) 0.2 % (0.0-1.8); Eosinophils # (Auto) 0.2 K/mm3 (0.0-0.4); Eosinophils % (Auto) 1.5 % (0.0-4.3); Hematocrit 26.6 % (30.3-42.9); Hemoglobin 8.6 gm/dl (10.1-14.3); Mean Corpuscular HGB Conc 32 % (30-34); Mean Corpuscular Volume 90 fl (79-97); Monocytes # (Auto) 0.7 K/mm3 (0.0-0.8); Monocytes % (Auto) 7.1 % (0.0-7.3); Platelet Count 286 K/mm3 (140-440); Red Blood Count 2.96 M/mm3 (3.65-5.03); Red Cell Distribution Width 16.5 % (13.2-15.2)
--- NOTE | 2021-11-26 07:10 | Progress Note ---
Assessment and Plan A: /postop day 3 S/P repeat LTCS with bilateral salpingectomy and lysis of adhesions. Anemia. Obesity. Heart murmur (asymptomatic). P: Discharge patient home today. Discussed with patient /postop discharge instructions and warning signs. Advised patient to continue taking her vitamin and iron supplements at home. Advised patient re: care of incision and activity restrictions. Advised patient to avoid intercourse, lifting, driving, housework, and stair climbing. Advised patient to take showers, not tub baths, and to keep her incision clean and dry. Advised patient to follow up at [facility] office in 1 week. Patient to have cardiology referral as outpatient when she sees [facility] this week. Patient voiced understanding of all instructions. Subjective - Subjective Date of service: 11/26/21 Principal diagnosis: POD#3 repeat C/S with bilateral salpingectomy and lysis of adhesions Interval history: Patient denies cough, SOB, chest pain, fatigue, or any other problems. Patient reports: appetite normal, voiding normally, pain well controlled, flatus, bowel movement, ambulating normally, no dizzy ambulation, no nauseated [place]: doing well Objective - Vital Signs Latest vital signs: Vital Signs Temp Pulse Resp BP BP Pulse Ox Pulse Ox 11/26/21 06:15 98 11/26/21 03:20 98 11/26/21 02:15 98 11/25/21 23:40 98.4 F 88 18 124/69 99 11/25/21 23:27 98 11/25/21 21:15 98 11/25/21 20:15 99.1 F 85 20 138/68 97 97 11/25/21 16:46 98.4 F 80 18 125/54 98 11/25/21 08:07 98.0 F 83 18 134/55 97 11/25/21 07:24 98 Intake and Output 11/25/21 11/25/21 11/26/21 15:59 23:59 07:59 Intake Total 720 960 Balance 720 960 Intake: Oral 120 600 Intake, Free Water 600 360 Other: Total, Intake Amount 120 120 # Voids Void 2 1 1 # Bowel Movements 2 1 - Exam Cardiovascular: Present: Regular rate, Other (Murmur heard) Lungs: Present: Clear to auscultation Abdomen: Present: normal appearance, soft, normal bowel sounds. Absent: distention, tenderness, guarding, rigidity Uterus: Present: normal, firm, fundal height below umbilicus. Absent: bogginess, tenderness Extremities: Present: edema (bilateral pedal edema). Absent: tenderness Incision: Present: dry, intact - Labs Labs: Abnormal lab results 11/26/21 Range/Units 03:58 RBC 2.96 L (3.65-5.03) M/mm3 Hgb 8.6 L (10.1-14.3) gm/dl Hct 26.6 L (30.3-42.9) % RDW 16.5 H (13.2-15.2) % Lymph % (Auto) 10.0 L (13.4-35.0) % Lymph # (Auto) 1.0 L (1.2-5.4) K/mm3 Seg Neutrophils % 81.2 H (40.0-70.0) % Seg Neutrophils # 8.3 H (1.8-7.7) K/mm3
--- NOTE | 2021-11-26 07:17 | Discharge Summary ---
Providers - Providers Date of Admission: 11/23/21 08:53 Date of discharge: 11/26/21 Attending physician: FLORENCIO WANG Primary care physician: AUDIO PRODUCTION INSTRUCTOR Hospitalization Reason for admission: section Delivery: Procedure: repeat low transverse Other procedures: other (bilateral salpingectomy and lysis of adhesions) complications: none Discharge diagnosis: IUP at term delivered [place] baby: male Pertinent studies: Labs Hospital course: Stable hospital course. Condition at discharge: Good Disposition: 01 HOME / SELF CARE / HOMELESS - Discharge Diagnoses (1) Term delivered Status: Acute (2) Anemia Status: Acute Plan - Discharge Medications Prescriptions: Ibuprofen [Motrin] 800 mg PO Q8HR PRN 21 Days #40 tablet PRN Reason: Pain, Moderate (4-6) oxyCODONE /ACETAMINOPHEN [Percocet 5/325] 1 tab PO Q4HR PRN 21 Days #30 tab PRN Reason: Pain , Severe (7-10) - Provider Discharge Summary Activity: routine, no sex for 6 weeks, no heavy lifting 4 weeks, no strenuous exercise Diet: routine Instructions: routine Additional instructions: Continue taking your vitamin and iron supplements at home. Follow up at [facility] within 1 week for incision check and to get outpatient referral to cardiology for heart murmur (asymptomatic). Call your doctor immediately for: * Fever > 100.5 * Heavy vaginal bleeding ( >1 pad per hour) * Severe persistent headache * Shortness of breath * Reddened, hot, painful area to leg or breast * Drainage or odor from incision. * Keep incision clean and dry at all times and follow doctor's instructions regarding bathing/showering - Follow up plan Follow up: FLORENCIO WANG MD [Staff Physician] - 7 Days
[2021-11-26 08:45] VITALS: BP 143/81
[2021-11-26] MEDS: PRENATAL VIT27-FE FUMARATE-FOLIC ACID VIT TAB PO SCH (11:55)
[2021-11-26] MEDS: FERROUS SULFATE 325 MG TAB PO SCH (11:55)
[2021-11-26] MEDS: oxyCODONE /ACETAMINOPHEN 5-325MG TAB PO PRN (11:55)
== END 2021-11-26 12:10 | disposition home or self-care (01) | DRG 766 ==
LOC: APU 11-23 08:53 → OB 11-23 15:22
PROVIDERS: ADMIT Obstetrics & Gynecology; ATTEND Obstetrics & Gynecology
PROC: 10D00Z1 Extraction of Products of Conception, Low, Open Approach (ICD-10-PCS; principal; 2021-11-23)
PROC: 0UB70ZZ Excision of Bilateral Fallopian Tubes, Open Approach (ICD-10-PCS; 2021-11-23)
DX: O34.211 Maternal care for low transverse scar from previous cesarean delivery (principal); O99.214 Obesity complicating childbirth; O99.824 Streptococcus B carrier state complicating childbirth; O16.4 Unspecified maternal hypertension, complicating childbirth; O99.62 Diseases of the digestive system complicating childbirth; E66.01 Morbid (severe) obesity due to excess calories; K66.0 Peritoneal adhesions (postprocedural) (postinfection); Z3A.39 39 weeks gestation of pregnancy; Z37.0 Single live birth; Z30.2 Encounter for sterilization; O90.81 Anemia of the puerperium
CPT/HCPCS: 36415; 85007; 85025; 85027; 86592; 86850; 86900; 86901; 88302; 88305; 88307; G0378; J3490; J0690; J1100; J1885; J2370; J2405; J2765; J3010; J7120; U0003

== ENCOUNTER 2021-12-19 21:14 | Emergency (ER) | payer MEDICAID ==
[2021-12-20] MEDS ORDERED: hydrALAZINE 25 MG TAB PO ONE (11:23)
[2021-12-20 12:16] LABS: Alanine Aminotransferase 10 units/L (7-56); Blood Urea Nitrogen 6 mg/dL (7-17); Calcium 9.2 mg/dL (8.4-10.2); Hemolysis Index 29
[2021-12-20 12:23] LABS: BUN/Creatinine Ratio 10
[2021-12-20 12:51] LABS: Basophils % (Auto) 0.3 % (0.0-1.8); Eosinophils # (Auto) 0.1 K/mm3 (0.0-0.4); Eosinophils % (Auto) 0.9 % (0.0-4.3); Hematocrit 34.7 % (30.3-42.9); Hemoglobin 10.8 gm/dl (10.1-14.3); Lymphocytes # (Auto) 1.7 K/mm3 (1.2-5.4); Lymphocytes % (Auto) 25.5 % (13.4-35.0); Mean Corpuscular HGB Conc 31 % (30-34); Mean Corpuscular Volume 88 fl (79-97); Monocytes # (Auto) 0.4 K/mm3 (0.0-0.8); Monocytes % (Auto) 5.4 % (0.0-7.3); Platelet Count 461 K/mm3 (140-440); Red Blood Count 3.94 M/mm3 (3.65-5.03); Red Cell Distribution Width 16.4 % (13.2-15.2)
[2021-12-20 15:52] LABS: Bacteria,Urine 1+ /HPF (Negative); Mucus,Urine FEW /HPF
[2021-12-20 16:42] LABS: Bilirubin,Urine Negative (Negative); Color,Urine Yellow (Yellow)
[2021-12-20 16:43] LABS: Protein,Urine <15 mg/dL mg/dL (Negative)
[2021-12-20 16:44] LABS: Blood,Urine 2+ (Negative)
[2021-12-20 18:17] VITALS: BP 165/91
--- NOTE | 2021-12-20 19:13 | Emergency Department Report ---
ED General Adult HPI - General Chief complaint: High BP Stated complaint: BLOOD PRESSURE CONCERNS Source: patient Mode of arrival: Ambulatory Limitations: No Limitations - History of Present Illness Initial comments: Patient is a 36-year-old -Russian female with a history of hypertension, morbid obesity and GERD who presents to the ED with complaint of persistent elevated blood pressure for the last 3 weeks. Patient states that she has not taken her blood pressure medications for the last 9 months because she was and is 3 weeks . Patient states that while , she used to take hypertension medications but ran out a few days after delivery. Patient denies dizziness, syncope, chest pain, shortness of breath, headache, abdominal pain, dysuria, urinary frequency and urgency, nausea and vomiting, seizures, cough, diarrhea, fever and chills, dysuria or urinary frequency and urgency. MD Complaint: Uncontrolled hypertension, out of her medications -: week(s) (3) Location: head Radiation: non-radiation Severity scale (0 -10): 0 Improves with: none Worsens with: none Associated Symptoms: denies other symptoms. denies: confusion, chest pain, cough, diaphoresis, fever/chills, loss of appetite, malaise, nausea/vomiting, rash, seizure, shortness of breath, syncope, weakness Treatments Prior to Arrival: none - Related Data Home Medications Medication Instructions Recorded Confirmed Last Taken Labetalol 100mg TAB 100 mg PO BID 12/20/21 12/20/21 Unknown Previous Rx's Medication Instructions Recorded Last Taken Type NIFEdipine [Nifedipine ER] 60 mg PO DAILY #60 12/20/21 Unknown Rx cephALEXin [Keflex] 500 mg PO Q8HR #30 cap 12/20/21 Unknown Rx Allergies Allergy/AdvReac Type Severity Reaction Status Date / Time No Known Allergies Allergy Verified 12/20/21 11:13 ED Review of Systems ROS: Stated complaint: BLOOD PRESSURE CONCERNS Other details as noted in HPI Constitutional: other (uncontrolled hypertension). denies: chills, fever Eyes: denies: eye pain, eye discharge, vision change ENT: denies: ear pain, throat pain Respiratory: denies: cough, shortness of breath, wheezing Cardiovascular: denies: chest pain, palpitations Endocrine: no symptoms reported Gastrointestinal: denies: abdominal pain, nausea, diarrhea Genitourinary: denies: urgency, dysuria, discharge Musculoskeletal: denies: back pain, joint swelling, arthralgia Skin: denies: rash, lesions Neurological: denies: headache, weakness, paresthesias Psychiatric: denies: anxiety, depression Hematological/Lymphatic: denies: easy bleeding, easy bruising ED Past Medical Hx - Past Medical History Hx Hypertension: Yes (Gestational) Hx Congestive Heart Failure: No Hx Diabetes: No Hx Deep Vein Thrombosis: No Hx GERD: Yes Hx Renal Disease: No Hx Sickle Cell Disease: No Hx Seizures: No Hx Asthma: No Hx COPD: No Hx HIV: No Additional medical history: MORBID OBESITY - Surgical History Additional Surgical History: denies - Social History Smoking Status: Never Smoker - Medications Home Medications: Home Medications Medication Instructions Recorded Confirmed Last Taken Type Labetalol 100mg TAB 100 mg PO BID 12/20/21 12/20/21 Unknown History NIFEdipine [Nifedipine ER] 60 mg PO DAILY #60 12/20/21 Unknown Rx cephALEXin [Keflex] 500 mg PO Q8HR #30 cap 12/20/21 Unknown Rx ED Physical Exam - General Limitations: No Limitations General appearance: alert, in no apparent distress - Head Head exam: Present: atraumatic, normocephalic, normal inspection - Eye Eye exam: Present: normal appearance, PERRL, EOMI Pupils: Present: normal accommodation - ENT ENT exam: Present: normal exam, normal orophraynx, mucous membranes moist, TM's normal bilaterally, normal external ear exam - Neck Neck exam: Present: normal inspection, full ROM - Respiratory Respiratory exam: Present: normal lung sounds bilaterally. Absent: respiratory distress, wheezes, rales, stridor, chest wall tenderness, accessory muscle use, decreased breath sounds, prolonged expiratory - Cardiovascular Cardiovascular Exam: Present: regular rate, normal rhythm, normal heart sounds. Absent: systolic murmur, diastolic murmur, rubs, gallop - GI/Abdominal GI/Abdominal exam: Present: soft, normal bowel sounds. Absent: tenderness, guarding, rebound, hyperactive bowel sounds, hypoactive bowel sounds, organomegaly, mass - Extremities Exam Extremities exam: Present: normal inspection, full ROM, normal capillary refill. Absent: tenderness - Back Exam Back exam: Present: normal inspection, full ROM. Absent: tenderness, CVA tenderness (R), CVA tenderness (L), muscle spasm, paraspinal tenderness, vertebral tenderness - Neurological Exam Neurological exam: Present: alert, oriented X3, CN II-XII intact, normal gait, reflexes normal - Psychiatric Psychiatric exam: Present: normal affect, normal mood - Skin Skin exam: Present: warm, dry, intact, normal color. Absent: rash ED Course Vital Signs 12/19/21 12/20/21 12/20/21 21:26 09:19 11:12 Temperature 98.1 F 98.7 F 97.7 F Pulse Rate 60 60 54 L Respiratory 18 16 16 Rate Blood Pressure 185/91 Blood Pressure 195/79 185/88 [Right] O2 Sat by Pulse 100 100 100 Oximetry 12/20/21 12/20/21 12/20/21 11:42 14:08 18:17 Temperature Pulse Rate 78 72 66 Respiratory 16 16 Rate Blood Pressure 185/88 Blood Pressure 141/77 165/91 [Right] O2 Sat by Pulse 99 100 Oximetry ED Medical Decision Making - Lab Data Result diagrams: 12/20/21 11:38 12/20/21 11:38 - Medical Decision Making This is a 36-year-old -Russian female with a history of hypertension, morbid obesity and GERD who presents to the ED with complaint of persistent elevated blood pressure for the last 3 weeks. Patient states that she has not taken her blood pressure medications for the last 9 months because she was and is 3 weeks . Patient states that while , she used to take hypertension medications but ran out a few days after delivery. In the ED, patient is alert and oriented x3 and is not in any distress. Patient is hypertensive in triage, but otherwise is afebrile. Patient has no other complaint apart from persistently elevated blood pressure. All lab test results were reviewed and are all nonactionable except for urinalysis that showed urinary tract infection. There are no significant proteins in the urine to suspect preeclampsia at this time, and the patient lab test results are also unremarkable with no abnormal liver function test results. Patient was treated for hypertension in the ED and on reevaluation, patient blood pressure improved significantly. Patient was therefore discharged home on antibiotics for UTI and blood pressure medications and advised to follow-up with her GENERAL EDUCATION INSTRUCTOR physician and primary care physician in 7 to 10 days for reevaluation or return to the ED immediately if symptoms get worse. - Differential Diagnosis Hypertension; preeclampsia; eclampsia; UTI; Critical care attestation.: If time is entered above; I have spent that time in minutes in the direct care of this critically ill patient, excluding procedure time. ED Disposition Clinical Impression: Uncontrolled stage 2 hypertension, Acute urinary tract infection Disposition: 01 HOME / SELF CARE / HOMELESS Is pt being admited?: No Does the pt Need Aspirin: No Condition: Stable Instructions: Hypertension (ED), Urinary Tract Infection, Adult, [id number], Hypertension, Adult, [id number] Additional Instructions: All lab test results were reviewed and are all nonactionable except for u rinalysis that showed significant urinary tract infection. There is no sign of preeclampsia in the lab test results. Therefore take medication with food, drink plenty of fluids, follow-up with your primary care physician or GENERAL EDUCATION INSTRUCTOR physician in 7 to 10 days for reevaluation. Return to the ED immediately if symptoms get worse. Prescriptions: cephALEXin [Keflex] 500 mg PO Q8HR #30 cap NIFEdipine [Nifedipine ER] 60 mg PO DAILY #60 Referrals: COREY BELTRE MD [Primary Care Provider] - 3-5 Days FLORENCIO WANG MD [Staff Physician] - 7-10 days Time of Disposition: 19:11 Print Language: [place] ISLAND[place]
--- NOTE | 2021-12-21 13:37 | Electrocardiograph Report ---
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
== END 2021-12-20 19:21 | disposition home or self-care (01) ==
LOC: ED 21:14
DX: O16.5 Unspecified maternal hypertension, complicating the puerperium (principal); O86.20 Urinary tract infection following delivery, unspecified; N39.0 Urinary tract infection, site not specified; K21.9 Gastro-esophageal reflux disease without esophagitis; Z79.899 Other long term (current) drug therapy
CPT/HCPCS: 36415; 80053; 81001; 85025; 87086; 93005; 99283